=== PATIENT | male | born 1960 | race Caucasian/White ===

== ENCOUNTER → 2019-08-14 | Outpatient (CLI) | payer OTHER | END | disposition home or self-care (01) | LOC: LAB 10:04 → LAB SHORT 10:04 | DX: R39.89 Other symptoms and signs involving the genitourinary system (principal) | CPT/HCPCS: 87086 ==

== ENCOUNTER → 2019-11-02 | Outpatient (CLI) | payer OTHER ==
[~2019-11-02] MED LIST: Lopressor 50 mg50 MG PO; Ventolin/Prove6.7 GM INH; XARELTO20 MG PO
[2019-11-02 16:40] LABS: Campylobacter Sp Not Detected (NOT DETECT); Cryptosporidium Not Detected (NOT DETECT); Cyclospora Cayetanensis Not Detected (NOT DETECT); E. Coli O157 Not Detected (NOT DETECT); Entamoeba Histolytica Not Detected (NOT DETECT); Enteroaggregative E. coli-EAEC Not Detected (NOT DETECT); Enteropathogenic E. coli-EPEC Not Detected (NOT DETECT); Enterotoxigenic E. coli-ETEC Not Detected (NOT DETECT); Giardia Lamblia Not Detected (NOT DETECT); Plesiomonas Shigelloides Not Detected (NOT DETECT); Salmonella Sp Not Detected (NOT DETECT); Shiga Toxin-prod E. coli-STEC Not Detected (NOT DETECT); Shigella/Enteroin E. coli-EIEC Not Detected (NOT DETECT); Vibrio Cholerae Not Detected (NOT DETECT); Vibrio Sp Not Detected (NOT DETECT); Yersinia Enterocolitica Not Detected (NOT DETECT)
[2019-11-02 16:41] LABS: Adenovirus F 40/41 Not Detected (NOT DETECT); Astrovirus Not Detected (NOT DETECT); Norovirus GI/GII Not Detected (NOT DETECT); Rotavirus A Not Detected (NOT DETECT); Sapovirus Not Detected (NOT DETECT)
== END | disposition home or self-care (01) ==
LOC: LAB 09:04 → LAB SHORT 09:04
PROVIDERS: Nurse Practitioner Family
DX: R14.0 Abdominal distension (gaseous) (principal); R19.7 Diarrhea, unspecified
CPT/HCPCS: 0097U

== ENCOUNTER 2019-11-04 09:13 | Inpatient (IN) | payer OTHER ==
[~2019-11-04] VITALS: Ht 175.3 cm; Wt 95.6 kg
[2019-11-04 10:18] LABS: BASOPHILS ABSOLUTE AUTO 0.12 K/mm3 (0.00-0.23); BASOPHILS PERCENT AUTO 1 % (0-2); EOSINOPHILS ABSOLUTE AUTO 0.02 K/mm3 (0.00-0.68); EOSINOPHILS PERCENT AUTO 0 % (0-6); Hematocrit 51.3 % (37.0-53.0); Hemoglobin 17.4 g/dL (13.5-17.5); IMMATURE GRAN ABSOLUTE AUTO 0.06 K/mm3 (0.00-0.10); IMMATURE GRAN PERCENT AUTO 0 % (0-1); LYMPHOCYTES ABSOLUTE AUTO 2.14 K/mm3 (0.84-5.20); LYMPHOCYTES PERCENT AUTO 16 % (21-46); MONOCYTES ABSOLUTE AUTO 0.91 K/mm3 (0.16-1.47); MONOCYTES PERCENT AUTO 7 % (4-13); Mean Corpuscular HGB 32.3 pg (26.0-34.0); Mean Corpuscular HGB Conc 33.9 g/dL (31.5-36.5); Mean Corpuscular Volume 95 fL (80-100); Mean Platelet Volume 11.5 fL (9.1-12.4); NEUTROPHILS ABSOLUTE AUTO 10.26 K/mm3 (1.96-9.15); NEUTROPHILS PERCENT AUTO 76 % (41-73); Platelet Count 288 K/mm3 (150-400); RDW Coefficient Variation 13.4 % (11.7-14.2); Red Blood Cell Count 5.39 M/mm3 (4.30-5.90); White Blood Cell Count 13.51 K/mm3 (4.00-11.30)
[2019-11-04 10:40] LABS: Albumin, Blood 4.1 g/dL (3.4-5.0); Albumin/Globulin Ratio 1.4 (0.8-1.8); Bilirubin, Total 1.1 mg/dL (0.1-1.0); Calcium, Blood 9.7 mg/dL (8.5-10.1); Creatinine, Blood 2.09 mg/dL (0.60-1.20); Globulin, Blood 2.9 g/dL (2.2-4.0); Troponin I 0.021 ng/mL (0.000-0.040)
[2019-11-04 11:41] LABS: International Normalized Ratio 1.22; Prothrombin Time Results 12.9 Sec (9.7-11.5)
[2019-11-04] MEDS ORDERED: Ventolin/Prove6.7 GM INH (12:08)
[2019-11-04] MEDS ORDERED: Lopressor 50 mg50 MG PO (12:08)
[2019-11-04] MEDS ORDERED: XARELTO20 MG PO (13:21)
--- NOTE | 2019-11-04 15:21 | NUR ---
1430 The pt's echocardiogram was completed by Murphy, and when I was told after returning from lunch by Gladys Villalpando that the pt was feeling very weak and dyspneic at the end of the echo. Per Murphy, the pt's EF is 10% and he has also mitral regurgitation. The pt was still c/o difficulty breathing, he looks cyanotic, and appears to be extremely weak. Difficulty obtaining blood pressure. Oxygen by nasal cannula was applied. EKG was done, and reported to DR. Olvera, as well as the information from Murphy regarding the pt's echocardiogram, and the pt's condition which included a manual blood pressure of 60/[address] Olvera requested that the cardiology consultation be re-initiated. I called Dr. Thompson with the consultation and relayed to her the pertinent information regarding the pt available to me at the time. The pt was then transferred per Dr. Croft's orders to ICU 9 and bedside report was given to Rohan, who was assuming care of the patient. Dr. Olvera also met us in the ICU soon after the transfer.
--- NOTE | 2019-11-04 15:25 | NUR ---
DOPPLER BP 70/ DOPPLER. DR GROVE AND DR KELLEY AWARE.
--- NOTE | 2019-11-04 15:25 | NUR ---
ASSUMED CARE PT TRANSFERED TO ICU 9 AT 1455 VIA BED. PT IS AWAKE, ALERT, AND ORIENTED. PT IS LETHARGIC AND ASHEN IN COLOR. DOPPLER BP OF [address] GROVE IN ROOM AT THIS TIME TO PLACE CENTRAL LINE. HR 100-120'S AFIB. PT ON 2L O2 NC.
[2019-11-04 15:27] LABS: Adenovirus Not Detected (NOT DETECT); Bordetella pertussis Not Detected (NOT DETECT); Chlamydophila pneumoniae Not Detected (NOT DETECT); Coronavirus 229E Not Detected (NOT DETECT); Coronavirus HKU1 Not Detected (NOT DETECT); Coronavirus NL63 Not Detected (NOT DETECT); Coronavirus OC43 Not Detected (NOT DETECT); Human Metapneumovirus Not Detected (NOT DETECT); Human Rhinovirus/Enterovirus Not Detected (NOT DETECT); Influenza A/2009-H1 Not Detected (NOT DETECT); Influenza A/H1 Not Detected (NOT DETECT); Influenza A/H3 Not Detected (NOT DETECT); Influenza B Not Detected (NOT DETECT); Mycoplasma pneumoniae Not Detected (NOT DETECT); Parainfluenza Virus 1 Not Detected (NOT DETECT); Parainfluenza Virus 2 Not Detected (NOT DETECT); Parainfluenza Virus 3 Not Detected (NOT DETECT); Parainfluenza Virus 4 Not Detected (NOT DETECT); Respiratory Syncytial Virus Not Detected (NOT DETECT)
--- NOTE | 2019-11-04 16:26 | NUR ---
DOPPLER BP 90/ DOPPLER.
--- NOTE | 2019-11-04 18:33 | NUR ---
SHIFT SUMMARY / SOPHIE SOPHIE PROCEDURE PERFORMED FROM [address] BRUNER AT BEDSIDE. PT SEDATED WITH 2 MG VERSED AND 50 MCG'S OF FENTANYL. BP HAS REMAINED LABILE THROUGHOUT THE SHIFT AND PROCEDURE. LEVOPHED INFUSING AT 25 MCG/MIN, HEPARIN AT 13 UNITS/KG/HR PER PHARMACY, AND NS TKO. CL TO RIGHT SC IS C/D/I. PT AWAKE, ALERT, AND ORIENTED AT THIS TIME, BUT REMAINS DROWSEY. PT ON 4L O2 NC. SPO2 >92%. HR REMAINS AFIB 110-140'S. LS ARE COURSE THROUGHOUT. BT X4. EXTREMITIES ARE COOL AND PALE, TOES DUSKY. DR BRUNER TO PUT IN NEW ORDERS. WILL CONTINUE TO MONITOR AND REPORT OFF TO ONCOMING RN.
--- NOTE | 2019-11-04 18:51 | NUR ---
echocardiogram complete
--- NOTE | 2019-11-04 21:57 | NUR ---
PT RESTING IN BED. DENIES PAIN AND SOB. O2 AT 3L NC. A/O X4. DOROTHY. EQUAL CHECK PILOT. FACE IS SYMMETRICAL. RAISES ARMS AND LEGS OFF THE BED AND HOLDS THEM THERE, NO DRIFTING. ON LEVOPHED GTT AT 25MCG/MIN. WILL TITRATE PRN. HEPARIN GTT MANAGED BY PHARMACY. NO REQUESTS. CALL LIGHT IN REACH.
[2019-11-05 03:51] LABS: BASOPHILS PERCENT AUTO 1 % (0-2); EOSINOPHILS PERCENT AUTO 0 % (0-6); Hematocrit 43.5 % (37.0-53.0); Hemoglobin 14.6 g/dL (13.5-17.5); IMMATURE GRAN ABSOLUTE AUTO 0.03 K/mm3 (0.00-0.10); IMMATURE GRAN PERCENT AUTO 0 % (0-1); LYMPHOCYTES ABSOLUTE AUTO 4.27 K/mm3 (0.84-5.20); LYMPHOCYTES PERCENT AUTO 31 % (21-46); MONOCYTES ABSOLUTE AUTO 1.33 K/mm3 (0.16-1.47); MONOCYTES PERCENT AUTO 10 % (4-13); Mean Corpuscular HGB 31.7 pg (26.0-34.0); Mean Corpuscular HGB Conc 33.6 g/dL (31.5-36.5); Mean Corpuscular Volume 94 fL (80-100); Mean Platelet Volume 11.8 fL (9.1-12.4); NEUTROPHILS ABSOLUTE AUTO 8.17 K/mm3 (1.96-9.15); NEUTROPHILS PERCENT AUTO 59 % (41-73); Platelet Count 256 K/mm3 (150-400); RDW Coefficient Variation 13.3 % (11.7-14.2); RDW Standard Deviation 46.5 fL (35.1-46.3); Red Blood Cell Count 4.61 M/mm3 (4.30-5.90)
[2019-11-05 04:24] LABS: Alanine Aminotransfer (ALT/SGP 946 U/L (12-78); Albumin, Blood 3.2 g/dL (3.4-5.0); Albumin/Globulin Ratio 1.4 (0.8-1.8); Alk Phos 46 U/L (50-136); Anion Gap 9 mmol/L (6-16); Aspartate Aminotrans (AST/SGOT 998 U/L (12-37); Bilirubin, Total 0.4 mg/dL (0.1-1.0); Blood Urea Nitrogen 34 mg/dL (8-24); Bun/Creatinine Ratio 15.6 (12.0-20.0); CO2, Blood 23 mmol/L (21-32); Calcium, Blood 8.3 mg/dL (8.5-10.1); Chloride, Blood 106 mmol/L (98-108); Creatinine, Blood 2.18 mg/dL (0.60-1.20); Globulin, Blood 2.3 g/dL (2.2-4.0); Glomerular Filtration Rate 33 (60-); Glucose, Blood 154 mg/dL (70-99); Potassium, Blood 4.2 mmol/L (3.5-5.5); Sodium, Blood 138 mmol/L (136-145); Total Protein, Blood 5.5 g/dL (6.4-8.2); Troponin I 0.028 ng/mL (0.000-0.040)
[2019-11-05 05:17] LABS: Digoxin (Lanoxin) >15.00 ug/mL (0.80-2.00)
--- NOTE | 2019-11-05 06:34 | NUR ---
SUMMARY PT RESTING IN BED. DENIES PAIN, SOB, AND N/V ALL NIGHT. NO CHANGES IN NEURO. LEVOPHED HAS BEEN TITRATED DOWN TO 2MCG/MIN. STILL IN AFIB ANYWHERE FROM 80-110. CALLED DR. BRUNER ABOUT CRITICAL HIGH DIGOXIN LEVEL THIS AM. NEW ORDERS FOR EKG AND REDRAW DIG LEVEL AT NOON. NO SIGN OF DISTRESS. CALL LIGHT IN REACH.
--- NOTE | 2019-11-05 07:43 | NUR ---
ASSUMED CARE REPORT RECIEVED. PT IS SITTING UP IN BED AWAKE, ALERT, AND ORIENTED. PT DENIES PAIN OR DISCOMFORT. DENIES SOB. VITAL SIGNS STABLE WITH LEVOPHED TITRATED DOWN TO 1 MCG/MIN. PT ON 2L O2 NC. PT IS PINK AND WARM TO TOUCH. PT WITH URINAL AT BEDSIDE, USING INDEPENDENTLY. CENTRAL LINE TO RIGHT SC IS C/D/I. HEPARIN INFUSING AT 17 UNITS/KG/HR PER PHARMACY, AND NS TKO. DR BRUNER AT BEDSIDE TO DISCUSS PLAN OF CARE WITH PT. NO NEW ORDERS RECIEVED AT THIS TIME. WILL CONTINUE TO MONITOR.
[2019-11-05 12:45] LABS: Digoxin (Lanoxin) 0.66 ug/mL (0.80-2.00)
[2019-11-05 12:53] LABS: Phosphorus, Blood 3.8 mg/dL (2.5-4.9)
--- NOTE | 2019-11-05 17:48 | NUR ---
SHIFT SUMMARY PT DOING WELL THIS SHIFT. PT HAS TAKEN MULTIPLE NAPS THROUGHOUT THE DAY, BUT HAS REMAINED ALERT, ORIENTED, AND VERY TALKATIVE WHEN AWAKE. PT HAS DENIED PAIN OR SOB THIS SHIFT. VITAL SIGNS HAVE REMAINED STABLE THIS SHIFT. HR REMAINS AFIB 80-110'S. LEVOPHED TITRATED OFF THIS AM WITH STABLE BP THROUGHOUT THE DAY. PT ON 2L O2 NC. CL TO RIGHT SUBCLAVIAN IS C/D/I. HEPARIN INFUSING AT 17 UNITS/KG/HR AND NS TKO. PT USING URINAL TO VOID WELL INDEPENDENTLY. WILL CONTINUE TO MONITOR AND REPORT OFF TO ONCOMING RN.
[2019-11-06 04:35] LABS: BASOPHILS ABSOLUTE AUTO 0.08 K/mm3 (0.00-0.23); BASOPHILS PERCENT AUTO 1 % (0-2); EOSINOPHILS ABSOLUTE AUTO 0.12 K/mm3 (0.00-0.68); EOSINOPHILS PERCENT AUTO 2 % (0-6); Hematocrit 39.9 % (37.0-53.0); Hemoglobin 13.7 g/dL (13.5-17.5); IMMATURE GRAN ABSOLUTE AUTO 0.02 K/mm3 (0.00-0.10); IMMATURE GRAN PERCENT AUTO 0 % (0-1); LYMPHOCYTES ABSOLUTE AUTO 1.91 K/mm3 (0.84-5.20); LYMPHOCYTES PERCENT AUTO 25 % (21-46); MONOCYTES ABSOLUTE AUTO 0.66 K/mm3 (0.16-1.47); MONOCYTES PERCENT AUTO 9 % (4-13); Mean Corpuscular HGB 32.7 pg (26.0-34.0); Mean Corpuscular HGB Conc 34.3 g/dL (31.5-36.5); Mean Corpuscular Volume 95 fL (80-100); Mean Platelet Volume 11.4 fL (9.1-12.4); NEUTROPHILS PERCENT AUTO 64 % (41-73); Platelet Count 160 K/mm3 (150-400); RDW Coefficient Variation 13.3 % (11.7-14.2); RDW Standard Deviation 47.2 fL (35.1-46.3); Red Blood Cell Count 4.19 M/mm3 (4.30-5.90); White Blood Cell Count 7.69 K/mm3 (4.00-11.30)
[2019-11-06 05:02] LABS: Alanine Aminotransfer (ALT/SGP 691 U/L (12-78); Albumin, Blood 2.8 g/dL (3.4-5.0); Albumin/Globulin Ratio 1.3 (0.8-1.8); Alk Phos 40 U/L (50-136); Anion Gap 6 mmol/L (6-16); Aspartate Aminotrans (AST/SGOT 270 U/L (12-37); Bilirubin, Total 0.5 mg/dL (0.1-1.0); Blood Urea Nitrogen 18 mg/dL (8-24); Bun/Creatinine Ratio 14.2 (12.0-20.0); CO2, Blood 25 mmol/L (21-32); Calcium, Blood 8.1 mg/dL (8.5-10.1); Chloride, Blood 109 mmol/L (98-108); Creatinine, Blood 1.27 mg/dL (0.60-1.20); Globulin, Blood 2.2 g/dL (2.2-4.0); Glomerular Filtration Rate >60 (60-); Glucose, Blood 78 mg/dL (70-99); Magnesium, Blood 2.2 mg/dL (1.6-2.4); Phosphorus, Blood 3.4 mg/dL (2.5-4.9); Potassium, Blood 3.7 mmol/L (3.5-5.5); Sodium, Blood 140 mmol/L (136-145)
[2019-11-06 05:08] LABS: Digoxin (Lanoxin) 0.51 ug/mL (0.80-2.00)
--- NOTE | 2019-11-06 06:41 | NUR ---
SUMMARY PT DID WELL OVERNIGHT. DENIES PAIN OR PRESSURE, N/V, AND SOB. HEPARIN GTT REMAINS THE SAME. NO CHANGES.
--- NOTE | 2019-11-06 13:00 | NUR ---
DR ZOHREH BRUNER CALLED AND UPDATED TO VS AND PT STATUS. DISCUSSED PLAN OF CARE. NEW ORDERS RECIEVED.
--- NOTE | 2019-11-06 17:10 | NUR ---
SUMMARY PT SITTING UP IN BED TALKING ON THE PHONE WITH FAMILY, PT HAS BEEN ALERT AND ORIENTED T/O THE DAY, HEPARIN GTT HAS BEEN INCREASED SEVERAL TIMES TODAY AND IS NOW AT 20MG/KG/HR, PT CHELO WELL, PT HAS BEEN UP TO THE BATHROOM WITH MIN ASSIST, GAIT STEADY, PT ABLE TO VISIT BRIEFLY WITH HIS FAMILY THROUGH THE OUTSIDE WINDOW AND THE TELEPHONE, PT REPORTS FEELING "BETTER" TODAY, PT MED WITH DIGOXIN IV FOR HEART RATE, PT HAS DENIED ANY CHEST PAIN OR SOB, PLEASANT AND COOPERATIVE T/O THE DAY, VSS, NO ACUTE CHANGES, WILL CONT TO MONITOR
--- NOTE | 2019-11-07 01:39 | NUR ---
SHIFT NOTE: BEDSIDE REPORT GIVEN AT START OF SHIFT. PT A+O WATCHING TV. BP STABLE, HR 130'S ON THE MONITOR BUT 52-60'S RADIALLY. PT HAS DENIED SOB, DIZZINESS, OR ANY DISCOMFORTS THIS SHIFT THUS FAR. HOWEVER, PT OXYGEN REQUIREMENTS INCREASED TO KEEP SATS >90%. PT WITH CLEAR BUT DIMINISHED LS. O2 INCREASED TO 10L O2 WITH N/C REPLACED WITH HI-FLOW N/C. SINCE, PT'S SATS 90-92%. DURING THIS TIME, EACH TIME RN TO BEDSIDE, UPDATED PT WITH SATS AND O2 REQUIREMENTS, PT BECAME IRRITATED AND STATED A FEW TIMES, "JUST DON'T WORRY ABOUT IT". PT DENIED EVER HAVING SLEEP APNEA NOR ANY OTHER RESPIRATORY ISSUES. PT OTHERWISE APPEARS TO BE COMFORTABLE AND WITHOUT C/O. CALL LIGHT WITHIN REACH. WILL CONTINUE TO MONITOR.
[2019-11-07 05:44] LABS: BASOPHILS ABSOLUTE AUTO 0.06 K/mm3 (0.00-0.23); BASOPHILS PERCENT AUTO 1 % (0-2); EOSINOPHILS ABSOLUTE AUTO 0.43 K/mm3 (0.00-0.68); EOSINOPHILS PERCENT AUTO 6 % (0-6); Hematocrit 42.2 % (37.0-53.0); Hemoglobin 14.4 g/dL (13.5-17.5); IMMATURE GRAN ABSOLUTE AUTO 0.02 K/mm3 (0.00-0.10); IMMATURE GRAN PERCENT AUTO 0 % (0-1); LYMPHOCYTES ABSOLUTE AUTO 1.64 K/mm3 (0.84-5.20); LYMPHOCYTES PERCENT AUTO 22 % (21-46); MONOCYTES ABSOLUTE AUTO 0.81 K/mm3 (0.16-1.47); MONOCYTES PERCENT AUTO 11 % (4-13); Mean Corpuscular HGB 32.3 pg (26.0-34.0); Mean Corpuscular HGB Conc 34.1 g/dL (31.5-36.5); Mean Corpuscular Volume 95 fL (80-100); NEUTROPHILS ABSOLUTE AUTO 4.59 K/mm3 (1.96-9.15); NEUTROPHILS PERCENT AUTO 61 % (41-73); Platelet Count 185 K/mm3 (150-400); RDW Coefficient Variation 13.2 % (11.7-14.2); RDW Standard Deviation 46.3 fL (35.1-46.3); Red Blood Cell Count 4.46 M/mm3 (4.30-5.90); White Blood Cell Count 7.55 K/mm3 (4.00-11.30)
[2019-11-07 06:02] LABS: Alanine Aminotransfer (ALT/SGP 640 U/L (12-78); Albumin, Blood 2.8 g/dL (3.4-5.0); Albumin/Globulin Ratio 1.1 (0.8-1.8); Alk Phos 41 U/L (50-136); Anion Gap 6 mmol/L (6-16); Aspartate Aminotrans (AST/SGOT 186 U/L (12-37); Bilirubin, Total 0.5 mg/dL (0.1-1.0); Blood Urea Nitrogen 13 mg/dL (8-24); Bun/Creatinine Ratio 10.2 (12.0-20.0); CO2, Blood 27 mmol/L (21-32); Calcium, Blood 8.4 mg/dL (8.5-10.1); Chloride, Blood 110 mmol/L (98-108); Creatinine, Blood 1.27 mg/dL (0.60-1.20); Globulin, Blood 2.6 g/dL (2.2-4.0); Glomerular Filtration Rate >60 (60-); Glucose, Blood 95 mg/dL (70-99); Potassium, Blood 3.7 mmol/L (3.5-5.5); Sodium, Blood 143 mmol/L (136-145); Total Protein, Blood 5.4 g/dL (6.4-8.2)
--- NOTE | 2019-11-07 08:02 | NUR ---
Received report from Isatu ARANGO. Patient sitting up in bed doing face time. When entering room mninutes later I reduced his O2 to NC 5L and off high flow NC and sats mid 90%'s and he states feeling fine without any dyspnea. He tolerated am med with water. I called Dr Roy and he states fine with him going to PCU as well as Dr Scott. He has bilateral 20ga IV's in AC's both dressings intact and sites WNL's. RAC infusing Heparin at 20 units/kg/hr and NS TKO. He is afebrile at 97.6, HR 90's and systolic 114 with MAP > 65. Patient states would like to go back to PCU and nothing wrong with ICU just prefers not to be here. Patient alert and able to communicate his needs.
--- NOTE | 2019-11-07 11:10 | NUR ---
Reduced patient down to RA by 0900 and sats in the upper 90's. He tolerated breakfast 100% and was independent in room. I walked him to PCU 4 and hbe was 97 % after getting to bed. I gathered all personal belonging after patient was transfered and took to room. He remains on NS TKO and Heparin 20 units /kg/hr. He had no current needs at time of transfer. Gave Nurse report in person prior to transfer.
--- NOTE | 2019-11-07 16:57 | NUR ---
SHIFT NOTE PT TRANSFERED FROM ICU. PT A/O X4, ANSWERING QUESTIONS APPROPRIATELY IN FULL SENTENCES. PT'S CENTRAL LINE WAS REMOVED, PRESSURE HELD FOR 45 MINUTES WITH SOME BLEEDING NOTED POST PRESSURE, NILDA ARANGO WAS CALLED FROM ICU TO PLACE PRESSURE DRESSING AND NO BLEEDING HAS BEEN NOTED SINCE PRESSURE DRESSING APPLIED. HEPARIN TO BE D/C WHEN XARELTO IS BEGINS AT 1800 TONIGHT. PT HAS BEEN OTHERWISE INDEPENDANT IN ROOM. CENTRAL LINE WAS REMOVED INTACT WITH NO BREAKS NOTED.
[2019-11-08 03:25] LABS: BASOPHILS ABSOLUTE AUTO 0.06 K/mm3 (0.00-0.23); BASOPHILS PERCENT AUTO 1 % (0-2); EOSINOPHILS ABSOLUTE AUTO 0.55 K/mm3 (0.00-0.68); EOSINOPHILS PERCENT AUTO 7 % (0-6); Hematocrit 43.4 % (37.0-53.0); Hemoglobin 14.9 g/dL (13.5-17.5); IMMATURE GRAN ABSOLUTE AUTO 0.02 K/mm3 (0.00-0.10); IMMATURE GRAN PERCENT AUTO 0 % (0-1); LYMPHOCYTES ABSOLUTE AUTO 2.05 K/mm3 (0.84-5.20); LYMPHOCYTES PERCENT AUTO 27 % (21-46); MONOCYTES ABSOLUTE AUTO 0.87 K/mm3 (0.16-1.47); MONOCYTES PERCENT AUTO 11 % (4-13); Mean Corpuscular HGB 32.2 pg (26.0-34.0); Mean Corpuscular HGB Conc 34.3 g/dL (31.5-36.5); Mean Corpuscular Volume 94 fL (80-100); Mean Platelet Volume 11.5 fL (9.1-12.4); NEUTROPHILS ABSOLUTE AUTO 4.06 K/mm3 (1.96-9.15); NEUTROPHILS PERCENT AUTO 53 % (41-73); Platelet Count 210 K/mm3 (150-400); RDW Coefficient Variation 13.5 % (11.7-14.2); RDW Standard Deviation 46.5 fL (35.1-46.3); Red Blood Cell Count 4.63 M/mm3 (4.30-5.90); White Blood Cell Count 7.61 K/mm3 (4.00-11.30)
[2019-11-08 03:45] LABS: Alanine Aminotransfer (ALT/SGP 582 U/L (12-78); Alk Phos 44 U/L (50-136); Anion Gap 7 mmol/L (6-16); Aspartate Aminotrans (AST/SGOT 136 U/L (12-37); Bilirubin, Total 0.4 mg/dL (0.1-1.0); Blood Urea Nitrogen 12 mg/dL (8-24); Bun/Creatinine Ratio 9.9 (12.0-20.0); CO2, Blood 25 mmol/L (21-32); Chloride, Blood 109 mmol/L (98-108); Creatinine, Blood 1.21 mg/dL (0.60-1.20); Globulin, Blood 2.9 g/dL (2.2-4.0); Glomerular Filtration Rate >60 (60-); Glucose, Blood 100 mg/dL (70-99); Magnesium, Blood 1.9 mg/dL (1.6-2.4); Potassium, Blood 4.2 mmol/L (3.5-5.5); Sodium, Blood 141 mmol/L (136-145); Total Protein, Blood 5.9 g/dL (6.4-8.2)
--- NOTE | 2019-11-08 05:27 | NUR ---
END OF SHIFT SUMMARY NO ACUTE CHANGES THIS SHIFT. VSS. PRESSURE DRESSING STILL IN PLACE OVER CENTRAL LINE DC SITE. NO NEW BLEEDING NOTED. PT REMAINS IN AFIB, BP LOW BUT STABLE. PT'S HR 100'S, INCREASES TO 140'S WITH ACTIVITY/AMBULATION. PT HAS TAKEN A SEMI SHOWER/SPONGE BATH. PT HAS DENIED ANY CP/PRESSURE. HAS SLEPT T/O THE NIGHT. WILL CONTINUE TO MONITOR UNTIL SHIFT CHANGE.
[2019-11-08] MEDS ORDERED: METO25ER PO (10:09)
[2019-11-08] MEDS ORDERED: LOSA25 PO (10:09)
[2019-11-08] MEDS ORDERED: FURO20 PO (10:09)
[2019-11-08] MEDS ORDERED: POTCHL20ER PO (10:10)
[2019-11-08] MEDS ORDERED: SPIR25 PO (10:10)
--- NOTE | 2019-11-08 17:38 | NUR ---
DISCHARGE SUMMARY PT A&Ox4; CALM AND COOPERATIVE WITH CARE. PT RESTING IN BED DURING SHIFT, UP IND IN ROOM. PT REPORTS SOB WITH AMBULATIONS, SPO2 >90% ON RA. PT STARTED ON COZAAR AND ALDACTONE; ORDERS TO MONITOR VITALS AND OK TO SEND HOME IF REMAINS STABLE. TELE AFIB; HR TRENDING UP THIS AFTERNOON, NOTIFIED DR SOTELO NEW ORDER FOR METOPROLOL 12.5MG PO AT APPROX 1400; TRENDING BACK DOWM THIS AFTERNOON; NEW ORDERS TO CONINTUE WITH DISCHARGE. CENTRAL LINE REMOVED YESTERDAY TO LEFT UPPER CHEST; XEROFORM IN PLACE WITH TEGADERM COVERING. OTHER VSS. NO OTHER ACUTE CHANGES NOTED DURING SHIFT. EDUCATED PT IN DISCHARGE INSTRUCTIONS, MEDICATIONS, FOLLOW UP APPOINTMENT AND AFIB/THROMBUS. FAXED PRESCRIPTIONS TO [facility], PT PLANS TO [employer]ING IN THE AM. PT LEFT ROOM ON FOOT AT 1730.
== END 2019-11-08 17:29 | disposition home or self-care (01) | DRG 291 ==
LOC: ER 09:13 → ICUW 11:08 → PCU 11:08 → ICUW 14:53 → PCU 11-07 11:00
PROVIDERS: Emergency Medicine; Internal Medicine Cardiovascular Disease; Internal Medicine Critical Care Medicine; ADMIT Family Medicine
PROC: 05HM33Z Insertion of Infusion Device into Right Internal Jugular Vein, Percutaneous Approach (ICD-10-PCS; principal; 2019-11-04)
PROC: B543ZZA Ultrasonography of Right Jugular Veins, Guidance (ICD-10-PCS; 2019-11-04)
PROC: 3E043XZ Introduction of Vasopressor into Central Vein, Percutaneous Approach (ICD-10-PCS; 2019-11-04)
PROC: B24BZZ4 Ultrasonography of Heart with Aorta, Transesophageal (ICD-10-PCS; 2019-11-04)
DX: I11.0 Hypertensive heart disease with heart failure (principal); R57.0 Cardiogenic shock; I50.21 Acute systolic (congestive) heart failure; N17.9 Acute kidney failure, unspecified; I42.9 Cardiomyopathy, unspecified; I48.91 Unspecified atrial fibrillation; Z98.52 Vasectomy status; Z87.891 Personal history of nicotine dependence; I34.0 Nonrheumatic mitral (valve) insufficiency; F10.10 Alcohol abuse, uncomplicated; I51.3 Intracardiac thrombosis, not elsewhere classified; Z11.59 Encounter for screening for other viral diseases
CPT/HCPCS: 0099U; 36415; 36556; 71045; 76770; 80053; 80162; 83735; 83880; 84100; 84145; 84484; 85025; 85610; 85730; 93005; 93010; 93306; 93312; 93325; 96374; 96375; 99285-25; A9270-GY; C1751; J0456; J0696; J1160; J1644; J1940; J2250; J2310; J3010; J3411; J7030; J7050; J7060; U0002

== ENCOUNTER 2020-08-30 08:10 | Day surgery (SDC) | payer OTHER ==
[~2020-08-30 08:10] MED LIST changes: +Amiodarone HCl200 MG PO; +ENTRESTO 24 MG1 EACH PO; +FURO20 PO; +LOSA25 PO; +METO25ER PO; +POTCHL20ER PO; +SPIR25 PO
--- NOTE | 2020-08-30 08:46 | NUR ---
Ambulatory in Day Surgery History, Chart, Medications and Allergies reviewed before start of procedure. Lungs clear T/O to Auscultation. Patient confirms NPO status and agrees with scheduled surgery. Pre-Op teaching done. Pt verbalizes understanding.
--- NOTE | 2020-08-30 09:29 | NUR ---
Patient up to Ambulate independently. Gait steady. Discharge instructions reviewed with patient. Patient verbalizes understanding. Copy given to patient to take home.
== END 2020-08-30 22:59 | disposition home or self-care (01) ==
LOC: ORD 08:10 → CT 08:10 → ORD 08:30 → CT 09:00
DX: I48.19 Other persistent atrial fibrillation (principal)
CPT/HCPCS: 75574; Q9967

== ENCOUNTER 2022-05-18 02:32 | Day surgery (SDC) | payer OTHER | END 2022-05-18 23:43 | disposition home or self-care (01) | LOC: WOUND 02:32 | DX: L59.8 Other specified disorders of the skin and subcutaneous tissue related to radiation (principal); I48.92 Unspecified atrial flutter; I25.10 Atherosclerotic heart disease of native coronary artery without angina pectoris; R73.01 Impaired fasting glucose; F10.11 Alcohol abuse, in remission; I11.0 Hypertensive heart disease with heart failure; I50.9 Heart failure, unspecified; I48.91 Unspecified atrial fibrillation; Y84.2 Radiological procedure and radiotherapy as the cause of abnormal reaction of the patient, or of later complication, without mention of misadventure at the time of the procedure; Z85.818 Personal history of malignant neoplasm of other sites of lip, oral cavity, and pharynx; Z87.891 Personal history of nicotine dependence; Z86.718 Personal history of other venous thrombosis and embolism | CPT/HCPCS: G0463 ==

== ENCOUNTER 2022-05-28 02:58 | Day surgery (SDC) | payer OTHER | END 2022-05-28 23:19 | disposition home or self-care (01) | LOC: HBO 02:58 | DX: L59.8 Other specified disorders of the skin and subcutaneous tissue related to radiation (principal); I48.92 Unspecified atrial flutter; I25.10 Atherosclerotic heart disease of native coronary artery without angina pectoris; R73.01 Impaired fasting glucose; F10.11 Alcohol abuse, in remission; I11.0 Hypertensive heart disease with heart failure; I50.9 Heart failure, unspecified; Z85.819 Personal history of malignant neoplasm of unspecified site of lip, oral cavity, and pharynx | CPT/HCPCS: G0277 ==

== ENCOUNTER 2022-05-29 11:49 | Day surgery (SDC) | payer OTHER | END 2022-05-29 23:44 | disposition home or self-care (01) | LOC: HBO 11:49 | DX: L59.8 Other specified disorders of the skin and subcutaneous tissue related to radiation (principal); I48.92 Unspecified atrial flutter; I11.0 Hypertensive heart disease with heart failure; I50.9 Heart failure, unspecified; I25.10 Atherosclerotic heart disease of native coronary artery without angina pectoris; R73.01 Impaired fasting glucose; F10.11 Alcohol abuse, in remission; Z85.819 Personal history of malignant neoplasm of unspecified site of lip, oral cavity, and pharynx | CPT/HCPCS: G0277 ==

== ENCOUNTER 2022-05-31 03:23 | Day surgery (SDC) | payer OTHER | END 2022-05-31 23:31 | disposition home or self-care (01) | LOC: HBO 03:23 | DX: L59.8 Other specified disorders of the skin and subcutaneous tissue related to radiation (principal); I48.92 Unspecified atrial flutter; I25.10 Atherosclerotic heart disease of native coronary artery without angina pectoris; R73.01 Impaired fasting glucose; F10.11 Alcohol abuse, in remission; I11.0 Hypertensive heart disease with heart failure; I50.9 Heart failure, unspecified; Z85.819 Personal history of malignant neoplasm of unspecified site of lip, oral cavity, and pharynx | CPT/HCPCS: G0277 ==

== ENCOUNTER 2022-06-01 02:04 | Day surgery (SDC) | payer OTHER | END 2022-06-01 23:43 | disposition home or self-care (01) | LOC: HBO 02:04 | DX: L59.8 Other specified disorders of the skin and subcutaneous tissue related to radiation (principal); I48.92 Unspecified atrial flutter; I25.10 Atherosclerotic heart disease of native coronary artery without angina pectoris; R73.01 Impaired fasting glucose; F10.11 Alcohol abuse, in remission; I11.0 Hypertensive heart disease with heart failure; I50.9 Heart failure, unspecified; Z85.819 Personal history of malignant neoplasm of unspecified site of lip, oral cavity, and pharynx | CPT/HCPCS: G0277 ==

== ENCOUNTER 2022-06-04 00:24 | Day surgery (SDC) | payer OTHER | END 2022-06-04 22:55 | disposition home or self-care (01) | LOC: HBO 00:24 | DX: L59.8 Other specified disorders of the skin and subcutaneous tissue related to radiation (principal); I48.92 Unspecified atrial flutter; I25.10 Atherosclerotic heart disease of native coronary artery without angina pectoris; R73.01 Impaired fasting glucose; F10.11 Alcohol abuse, in remission; I11.0 Hypertensive heart disease with heart failure; I50.9 Heart failure, unspecified; Z85.819 Personal history of malignant neoplasm of unspecified site of lip, oral cavity, and pharynx | CPT/HCPCS: G0277 ==

== ENCOUNTER 2022-06-05 03:09 | Day surgery (SDC) | payer OTHER | END 2022-06-05 23:34 | disposition home or self-care (01) | LOC: HBO 03:09 | DX: L59.8 Other specified disorders of the skin and subcutaneous tissue related to radiation (principal); Z85.819 Personal history of malignant neoplasm of unspecified site of lip, oral cavity, and pharynx; I48.92 Unspecified atrial flutter; I25.10 Atherosclerotic heart disease of native coronary artery without angina pectoris; R73.01 Impaired fasting glucose; F10.11 Alcohol abuse, in remission; I50.9 Heart failure, unspecified; I11.0 Hypertensive heart disease with heart failure | CPT/HCPCS: G0277 ==

== ENCOUNTER 2022-06-06 02:02 | Day surgery (SDC) | payer OTHER | END 2022-06-06 23:50 | disposition home or self-care (01) | LOC: HBO 02:02 | DX: L59.8 Other specified disorders of the skin and subcutaneous tissue related to radiation (principal); I48.92 Unspecified atrial flutter; I25.10 Atherosclerotic heart disease of native coronary artery without angina pectoris; R73.01 Impaired fasting glucose; F10.11 Alcohol abuse, in remission; I11.0 Hypertensive heart disease with heart failure; I50.9 Heart failure, unspecified; Z85.819 Personal history of malignant neoplasm of unspecified site of lip, oral cavity, and pharynx | CPT/HCPCS: G0277 ==

== ENCOUNTER 2022-06-07 03:55 | Day surgery (SDC) | payer OTHER | END 2022-06-07 23:07 | disposition home or self-care (01) | LOC: HBO 03:55 | DX: L59.8 Other specified disorders of the skin and subcutaneous tissue related to radiation (principal); I48.92 Unspecified atrial flutter; I25.10 Atherosclerotic heart disease of native coronary artery without angina pectoris; R73.01 Impaired fasting glucose; F10.11 Alcohol abuse, in remission; I11.0 Hypertensive heart disease with heart failure; I50.9 Heart failure, unspecified; Z85.819 Personal history of malignant neoplasm of unspecified site of lip, oral cavity, and pharynx | CPT/HCPCS: G0277 ==

== ENCOUNTER 2022-06-11 02:57 | Day surgery (SDC) | payer OTHER | END 2022-06-11 23:41 | disposition home or self-care (01) | LOC: HBO 02:57 | DX: L59.8 Other specified disorders of the skin and subcutaneous tissue related to radiation (principal); Z85.819 Personal history of malignant neoplasm of unspecified site of lip, oral cavity, and pharynx; I48.92 Unspecified atrial flutter; I25.10 Atherosclerotic heart disease of native coronary artery without angina pectoris; R73.01 Impaired fasting glucose; F10.11 Alcohol abuse, in remission; I50.9 Heart failure, unspecified; I11.0 Hypertensive heart disease with heart failure | CPT/HCPCS: G0277 ==

== ENCOUNTER 2022-06-12 04:15 | Day surgery (SDC) | payer OTHER | END 2022-06-12 23:25 | disposition home or self-care (01) | LOC: HBO 04:15 | DX: L59.8 Other specified disorders of the skin and subcutaneous tissue related to radiation (principal); Z85.819 Personal history of malignant neoplasm of unspecified site of lip, oral cavity, and pharynx; I48.92 Unspecified atrial flutter; I25.10 Atherosclerotic heart disease of native coronary artery without angina pectoris; R73.01 Impaired fasting glucose; F10.11 Alcohol abuse, in remission; I50.9 Heart failure, unspecified; I11.0 Hypertensive heart disease with heart failure | CPT/HCPCS: G0277 ==

== ENCOUNTER 2022-06-14 02:08 | Day surgery (SDC) | payer OTHER | END 2022-06-14 22:57 | disposition home or self-care (01) | LOC: HBO 02:08 | DX: L59.8 Other specified disorders of the skin and subcutaneous tissue related to radiation (principal); I48.92 Unspecified atrial flutter; I25.10 Atherosclerotic heart disease of native coronary artery without angina pectoris; R73.01 Impaired fasting glucose; F10.11 Alcohol abuse, in remission; I11.0 Hypertensive heart disease with heart failure; I50.9 Heart failure, unspecified; Z85.819 Personal history of malignant neoplasm of unspecified site of lip, oral cavity, and pharynx | CPT/HCPCS: G0277 ==

== ENCOUNTER 2022-06-15 00:45 | Day surgery (SDC) | payer OTHER | END 2022-06-15 23:26 | disposition home or self-care (01) | LOC: HBO 00:45 | DX: L59.8 Other specified disorders of the skin and subcutaneous tissue related to radiation (principal); Z85.819 Personal history of malignant neoplasm of unspecified site of lip, oral cavity, and pharynx; I48.92 Unspecified atrial flutter; I25.10 Atherosclerotic heart disease of native coronary artery without angina pectoris; R73.01 Impaired fasting glucose; F10.11 Alcohol abuse, in remission; I50.9 Heart failure, unspecified; I11.0 Hypertensive heart disease with heart failure | CPT/HCPCS: G0277 ==

== ENCOUNTER 2022-06-18 01:50 | Day surgery (SDC) | payer OTHER | END 2022-06-18 23:40 | disposition home or self-care (01) | LOC: HBO 01:50 | DX: L59.8 Other specified disorders of the skin and subcutaneous tissue related to radiation (principal); Z85.819 Personal history of malignant neoplasm of unspecified site of lip, oral cavity, and pharynx; I48.92 Unspecified atrial flutter; I10 Essential (primary) hypertension; I25.10 Atherosclerotic heart disease of native coronary artery without angina pectoris; F10.11 Alcohol abuse, in remission; I50.9 Heart failure, unspecified; I11.0 Hypertensive heart disease with heart failure | CPT/HCPCS: G0277 ==

== ENCOUNTER 2022-06-19 08:00 | Day surgery (SDC) | payer OTHER | END 2022-06-19 23:59 | disposition home or self-care (01) | LOC: HBO 08:00 | DX: L59.8 Other specified disorders of the skin and subcutaneous tissue related to radiation (principal); Z85.819 Personal history of malignant neoplasm of unspecified site of lip, oral cavity, and pharynx; I48.92 Unspecified atrial flutter; I25.10 Atherosclerotic heart disease of native coronary artery without angina pectoris; R73.01 Impaired fasting glucose; F10.11 Alcohol abuse, in remission; I50.9 Heart failure, unspecified; I11.0 Hypertensive heart disease with heart failure | CPT/HCPCS: G0277 ==

== ENCOUNTER 2022-06-20 01:20 | Day surgery (SDC) | payer OTHER | END 2022-06-20 23:41 | disposition home or self-care (01) | LOC: HBO 01:20 | DX: L59.8 Other specified disorders of the skin and subcutaneous tissue related to radiation (principal); Z85.819 Personal history of malignant neoplasm of unspecified site of lip, oral cavity, and pharynx; I48.92 Unspecified atrial flutter; I25.10 Atherosclerotic heart disease of native coronary artery without angina pectoris; R73.01 Impaired fasting glucose; F10.11 Alcohol abuse, in remission; I11.0 Hypertensive heart disease with heart failure; I50.9 Heart failure, unspecified | CPT/HCPCS: G0277 ==

== ENCOUNTER 2022-06-21 00:51 | Day surgery (SDC) | payer OTHER | END 2022-06-21 22:44 | disposition home or self-care (01) | LOC: HBO 00:51 | DX: L59.8 Other specified disorders of the skin and subcutaneous tissue related to radiation (principal); Z85.819 Personal history of malignant neoplasm of unspecified site of lip, oral cavity, and pharynx; I48.92 Unspecified atrial flutter; I11.0 Hypertensive heart disease with heart failure; I50.9 Heart failure, unspecified; I25.10 Atherosclerotic heart disease of native coronary artery without angina pectoris; R73.01 Impaired fasting glucose; F10.11 Alcohol abuse, in remission; Y84.2 Radiological procedure and radiotherapy as the cause of abnormal reaction of the patient, or of later complication, without mention of misadventure at the time of the procedure | CPT/HCPCS: G0277 ==

== ENCOUNTER 2022-06-22 00:38 | Day surgery (SDC) | payer OTHER | END 2022-06-22 22:56 | disposition home or self-care (01) | LOC: HBO 00:38 | DX: L59.8 Other specified disorders of the skin and subcutaneous tissue related to radiation (principal); I48.92 Unspecified atrial flutter; I25.10 Atherosclerotic heart disease of native coronary artery without angina pectoris; R73.01 Impaired fasting glucose; F10.11 Alcohol abuse, in remission; I11.0 Hypertensive heart disease with heart failure; I50.9 Heart failure, unspecified; Z85.819 Personal history of malignant neoplasm of unspecified site of lip, oral cavity, and pharynx | CPT/HCPCS: G0277 ==

== ENCOUNTER 2022-06-25 02:00 | Day surgery (SDC) | payer OTHER | END 2022-06-25 23:33 | disposition home or self-care (01) | LOC: WOUND 02:00 | DX: L59.8 Other specified disorders of the skin and subcutaneous tissue related to radiation (principal); I48.92 Unspecified atrial flutter; I25.10 Atherosclerotic heart disease of native coronary artery without angina pectoris; R73.01 Impaired fasting glucose; F10.11 Alcohol abuse, in remission; I50.9 Heart failure, unspecified; I11.0 Hypertensive heart disease with heart failure | CPT/HCPCS: G0463 ==

== ENCOUNTER 2022-06-25 02:01 | Day surgery (SDC) | payer OTHER | END 2022-06-25 23:33 | disposition home or self-care (01) | LOC: HBO 02:01 | DX: L59.8 Other specified disorders of the skin and subcutaneous tissue related to radiation (principal); Z85.819 Personal history of malignant neoplasm of unspecified site of lip, oral cavity, and pharynx; I48.92 Unspecified atrial flutter; I25.10 Atherosclerotic heart disease of native coronary artery without angina pectoris; R73.01 Impaired fasting glucose; F10.11 Alcohol abuse, in remission; I50.9 Heart failure, unspecified; I11.0 Hypertensive heart disease with heart failure | CPT/HCPCS: G0277 ==

== ENCOUNTER 2022-06-26 03:34 | Day surgery (SDC) | payer OTHER | END 2022-06-26 22:46 | disposition home or self-care (01) | LOC: HBO 03:34 | DX: L59.8 Other specified disorders of the skin and subcutaneous tissue related to radiation (principal); I48.92 Unspecified atrial flutter; I25.10 Atherosclerotic heart disease of native coronary artery without angina pectoris; R73.01 Impaired fasting glucose; F10.11 Alcohol abuse, in remission; I11.0 Hypertensive heart disease with heart failure; I50.9 Heart failure, unspecified; Z85.819 Personal history of malignant neoplasm of unspecified site of lip, oral cavity, and pharynx | CPT/HCPCS: G0277 ==

== ENCOUNTER 2022-06-27 02:01 | Day surgery (SDC) | payer OTHER | END 2022-06-27 23:17 | disposition home or self-care (01) | LOC: HBO 02:01 | DX: L59.8 Other specified disorders of the skin and subcutaneous tissue related to radiation (principal); I48.92 Unspecified atrial flutter; Z85.819 Personal history of malignant neoplasm of unspecified site of lip, oral cavity, and pharynx; I25.10 Atherosclerotic heart disease of native coronary artery without angina pectoris; R73.01 Impaired fasting glucose; F10.11 Alcohol abuse, in remission; I11.0 Hypertensive heart disease with heart failure; I50.9 Heart failure, unspecified | CPT/HCPCS: G0277 ==

== ENCOUNTER 2022-07-02 01:31 | Day surgery (SDC) | payer OTHER | END 2022-07-02 23:39 | disposition home or self-care (01) | DX: L59.8 Other specified disorders of the skin and subcutaneous tissue related to radiation (principal); Z85.819 Personal history of malignant neoplasm of unspecified site of lip, oral cavity, and pharynx; I48.92 Unspecified atrial flutter; I11.0 Hypertensive heart disease with heart failure; I25.10 Atherosclerotic heart disease of native coronary artery without angina pectoris; R73.01 Impaired fasting glucose; F10.11 Alcohol abuse, in remission; I50.9 Heart failure, unspecified ==

== ENCOUNTER 2022-07-03 00:46 | Day surgery (SDC) | payer OTHER | END 2022-07-03 23:01 | disposition home or self-care (01) | LOC: HBO 00:46 | DX: L59.8 Other specified disorders of the skin and subcutaneous tissue related to radiation (principal); Z85.819 Personal history of malignant neoplasm of unspecified site of lip, oral cavity, and pharynx; I48.92 Unspecified atrial flutter; I25.10 Atherosclerotic heart disease of native coronary artery without angina pectoris; R73.01 Impaired fasting glucose; F10.11 Alcohol abuse, in remission; I50.9 Heart failure, unspecified; I11.0 Hypertensive heart disease with heart failure | CPT/HCPCS: G0277 ==

== ENCOUNTER 2022-07-04 02:43 | Day surgery (SDC) | payer OTHER | END 2022-07-04 23:07 | disposition home or self-care (01) | LOC: HBO 02:43 | DX: L59.8 Other specified disorders of the skin and subcutaneous tissue related to radiation (principal); Z85.819 Personal history of malignant neoplasm of unspecified site of lip, oral cavity, and pharynx; I48.92 Unspecified atrial flutter; I11.0 Hypertensive heart disease with heart failure; I50.9 Heart failure, unspecified; R73.01 Impaired fasting glucose; F10.11 Alcohol abuse, in remission; I25.10 Atherosclerotic heart disease of native coronary artery without angina pectoris | CPT/HCPCS: G0277 ==

== ENCOUNTER 2022-07-05 03:42 | Day surgery (SDC) | payer OTHER | END 2022-07-05 23:37 | disposition home or self-care (01) | LOC: HBO 03:42 | DX: L59.8 Other specified disorders of the skin and subcutaneous tissue related to radiation (principal); Z85.819 Personal history of malignant neoplasm of unspecified site of lip, oral cavity, and pharynx; I48.92 Unspecified atrial flutter; I11.0 Hypertensive heart disease with heart failure; I25.10 Atherosclerotic heart disease of native coronary artery without angina pectoris; R73.01 Impaired fasting glucose; F10.11 Alcohol abuse, in remission; I50.9 Heart failure, unspecified | CPT/HCPCS: G0277 ==

== ENCOUNTER 2022-07-06 02:22 | Day surgery (SDC) | payer OTHER | END 2022-07-06 23:13 | disposition home or self-care (01) | LOC: HBO 02:22 | DX: L59.8 Other specified disorders of the skin and subcutaneous tissue related to radiation (principal); I48.92 Unspecified atrial flutter; I25.10 Atherosclerotic heart disease of native coronary artery without angina pectoris; R73.01 Impaired fasting glucose; F10.11 Alcohol abuse, in remission; I11.0 Hypertensive heart disease with heart failure; I50.9 Heart failure, unspecified; Y84.2 Radiological procedure and radiotherapy as the cause of abnormal reaction of the patient, or of later complication, without mention of misadventure at the time of the procedure; Z85.819 Personal history of malignant neoplasm of unspecified site of lip, oral cavity, and pharynx | CPT/HCPCS: G0277 ==

== ENCOUNTER 2022-07-09 01:18 | Day surgery (SDC) | payer OTHER | END 2022-07-09 23:34 | disposition home or self-care (01) | LOC: HBO 01:18 | DX: L59.8 Other specified disorders of the skin and subcutaneous tissue related to radiation (principal); Z85.819 Personal history of malignant neoplasm of unspecified site of lip, oral cavity, and pharynx; I48.92 Unspecified atrial flutter; I11.0 Hypertensive heart disease with heart failure; I25.10 Atherosclerotic heart disease of native coronary artery without angina pectoris; R73.01 Impaired fasting glucose; F10.11 Alcohol abuse, in remission; I50.9 Heart failure, unspecified | CPT/HCPCS: G0277 ==

== ENCOUNTER 2022-07-10 02:29 | Day surgery (SDC) | payer OTHER | END 2022-07-10 23:19 | disposition home or self-care (01) | LOC: HBO 02:29 | DX: L59.8 Other specified disorders of the skin and subcutaneous tissue related to radiation (principal); Z85.819 Personal history of malignant neoplasm of unspecified site of lip, oral cavity, and pharynx; I48.92 Unspecified atrial flutter; I25.10 Atherosclerotic heart disease of native coronary artery without angina pectoris; R73.01 Impaired fasting glucose; F10.11 Alcohol abuse, in remission; I50.9 Heart failure, unspecified; I11.0 Hypertensive heart disease with heart failure | CPT/HCPCS: G0277 ==

== ENCOUNTER 2022-07-11 06:04 | Day surgery (SDC) | payer OTHER | END 2022-07-11 23:09 | disposition home or self-care (01) | LOC: HBO 06:04 | DX: L59.8 Other specified disorders of the skin and subcutaneous tissue related to radiation (principal); I48.92 Unspecified atrial flutter; I25.10 Atherosclerotic heart disease of native coronary artery without angina pectoris; R73.01 Impaired fasting glucose; F10.11 Alcohol abuse, in remission; I11.0 Hypertensive heart disease with heart failure; I50.9 Heart failure, unspecified; Z85.819 Personal history of malignant neoplasm of unspecified site of lip, oral cavity, and pharynx | CPT/HCPCS: G0277 ==

== ENCOUNTER 2022-07-12 01:38 | Day surgery (SDC) | payer OTHER | END 2022-07-12 22:40 | disposition home or self-care (01) | LOC: HBO 01:38 | DX: L59.8 Other specified disorders of the skin and subcutaneous tissue related to radiation (principal); Z85.819 Personal history of malignant neoplasm of unspecified site of lip, oral cavity, and pharynx; I48.92 Unspecified atrial flutter; I11.0 Hypertensive heart disease with heart failure; I50.9 Heart failure, unspecified; I25.10 Atherosclerotic heart disease of native coronary artery without angina pectoris; R73.01 Impaired fasting glucose; F10.11 Alcohol abuse, in remission | CPT/HCPCS: G0277 ==

== ENCOUNTER 2022-07-13 00:51 | Day surgery (SDC) | payer OTHER | END 2022-07-13 23:19 | disposition home or self-care (01) | LOC: HBO 00:51 | DX: L59.8 Other specified disorders of the skin and subcutaneous tissue related to radiation (principal); I48.92 Unspecified atrial flutter; I25.10 Atherosclerotic heart disease of native coronary artery without angina pectoris; R73.01 Impaired fasting glucose; F10.11 Alcohol abuse, in remission; I11.0 Hypertensive heart disease with heart failure; I50.9 Heart failure, unspecified | CPT/HCPCS: G0277 ==

== ENCOUNTER 2022-07-16 01:48 | Day surgery (SDC) | payer OTHER | END 2022-07-16 23:10 | disposition home or self-care (01) | LOC: HBO 01:48 | DX: L59.8 Other specified disorders of the skin and subcutaneous tissue related to radiation (principal); Z85.819 Personal history of malignant neoplasm of unspecified site of lip, oral cavity, and pharynx; I48.92 Unspecified atrial flutter; I11.0 Hypertensive heart disease with heart failure; I25.10 Atherosclerotic heart disease of native coronary artery without angina pectoris; R73.01 Impaired fasting glucose; F10.11 Alcohol abuse, in remission; I50.9 Heart failure, unspecified | CPT/HCPCS: G0277 ==

== ENCOUNTER 2022-07-17 02:59 | Day surgery (SDC) | payer OTHER | END 2022-07-17 23:09 | disposition home or self-care (01) | LOC: HBO 02:59 | DX: L59.8 Other specified disorders of the skin and subcutaneous tissue related to radiation (principal); Y84.2 Radiological procedure and radiotherapy as the cause of abnormal reaction of the patient, or of later complication, without mention of misadventure at the time of the procedure; I48.92 Unspecified atrial flutter; I25.10 Atherosclerotic heart disease of native coronary artery without angina pectoris; R73.01 Impaired fasting glucose; F10.11 Alcohol abuse, in remission; I11.0 Hypertensive heart disease with heart failure; I50.9 Heart failure, unspecified; Z85.819 Personal history of malignant neoplasm of unspecified site of lip, oral cavity, and pharynx | CPT/HCPCS: G0277 ==

== ENCOUNTER 2022-07-18 02:00 | Day surgery (SDC) | payer OTHER | END 2022-07-18 22:59 | disposition home or self-care (01) | LOC: HBO 02:00 | DX: L59.8 Other specified disorders of the skin and subcutaneous tissue related to radiation (principal); Z85.819 Personal history of malignant neoplasm of unspecified site of lip, oral cavity, and pharynx; I48.92 Unspecified atrial flutter; I11.0 Hypertensive heart disease with heart failure; R73.01 Impaired fasting glucose; F10.11 Alcohol abuse, in remission; I50.9 Heart failure, unspecified | CPT/HCPCS: G0277 ==

== ENCOUNTER 2022-07-20 01:17 | Day surgery (SDC) | payer OTHER | END 2022-07-20 23:19 | disposition home or self-care (01) | LOC: HBO 01:17 | DX: L59.8 Other specified disorders of the skin and subcutaneous tissue related to radiation (principal); I48.92 Unspecified atrial flutter; I11.0 Hypertensive heart disease with heart failure; I50.9 Heart failure, unspecified; I25.10 Atherosclerotic heart disease of native coronary artery without angina pectoris; R73.01 Impaired fasting glucose; F10.11 Alcohol abuse, in remission | CPT/HCPCS: G0277 ==

== ENCOUNTER 2022-07-23 01:23 | Day surgery (SDC) | payer OTHER | END 2022-07-23 23:03 | disposition home or self-care (01) | LOC: HBO 01:23 | DX: L59.8 Other specified disorders of the skin and subcutaneous tissue related to radiation (principal); I48.92 Unspecified atrial flutter; I25.10 Atherosclerotic heart disease of native coronary artery without angina pectoris; R73.01 Impaired fasting glucose; F10.11 Alcohol abuse, in remission; I11.0 Hypertensive heart disease with heart failure; I50.9 Heart failure, unspecified; Z85.819 Personal history of malignant neoplasm of unspecified site of lip, oral cavity, and pharynx | CPT/HCPCS: G0277 ==

== ENCOUNTER 2022-07-24 02:14 | Day surgery (SDC) | payer OTHER | END 2022-07-24 22:47 | disposition home or self-care (01) | LOC: HBO 02:14 | DX: L59.8 Other specified disorders of the skin and subcutaneous tissue related to radiation (principal); I48.92 Unspecified atrial flutter; I25.10 Atherosclerotic heart disease of native coronary artery without angina pectoris; R73.01 Impaired fasting glucose; F10.11 Alcohol abuse, in remission; I11.9 Hypertensive heart disease without heart failure; I50.9 Heart failure, unspecified; Z85.819 Personal history of malignant neoplasm of unspecified site of lip, oral cavity, and pharynx | CPT/HCPCS: G0277 ==

== ENCOUNTER 2022-07-25 01:10 | Day surgery (SDC) | payer OTHER | END 2022-07-26 00:05 | disposition home or self-care (01) | LOC: WOUND 01:10 | DX: L59.8 Other specified disorders of the skin and subcutaneous tissue related to radiation (principal); Z85.819 Personal history of malignant neoplasm of unspecified site of lip, oral cavity, and pharynx; I48.92 Unspecified atrial flutter; I11.0 Hypertensive heart disease with heart failure; I25.10 Atherosclerotic heart disease of native coronary artery without angina pectoris; R73.01 Impaired fasting glucose; F10.11 Alcohol abuse, in remission; I50.9 Heart failure, unspecified | CPT/HCPCS: G0463 ==

== ENCOUNTER 2022-07-25 01:12 | Day surgery (SDC) | payer OTHER | END 2022-07-26 00:05 | disposition home or self-care (01) | LOC: HBO 01:12 | DX: L59.8 Other specified disorders of the skin and subcutaneous tissue related to radiation (principal); Z85.819 Personal history of malignant neoplasm of unspecified site of lip, oral cavity, and pharynx; I48.92 Unspecified atrial flutter; I11.0 Hypertensive heart disease with heart failure; I25.10 Atherosclerotic heart disease of native coronary artery without angina pectoris; R73.01 Impaired fasting glucose; F10.11 Alcohol abuse, in remission; I50.9 Heart failure, unspecified | CPT/HCPCS: G0277 ==

== ENCOUNTER 2022-07-26 01:13 | Day surgery (SDC) | payer OTHER | END 2022-07-26 23:16 | disposition home or self-care (01) | LOC: HBO 01:13 | DX: L59.8 Other specified disorders of the skin and subcutaneous tissue related to radiation (principal); Z85.819 Personal history of malignant neoplasm of unspecified site of lip, oral cavity, and pharynx; I48.92 Unspecified atrial flutter; I11.0 Hypertensive heart disease with heart failure; I25.10 Atherosclerotic heart disease of native coronary artery without angina pectoris; R73.01 Impaired fasting glucose; F10.11 Alcohol abuse, in remission; I50.9 Heart failure, unspecified | CPT/HCPCS: G0277 ==

== ENCOUNTER 2022-07-27 02:05 | Day surgery (SDC) | payer OTHER | END 2022-07-28 23:38 | disposition home or self-care (01) | LOC: HBO 02:05 | DX: L59.8 Other specified disorders of the skin and subcutaneous tissue related to radiation (principal); Z85.819 Personal history of malignant neoplasm of unspecified site of lip, oral cavity, and pharynx; I48.92 Unspecified atrial flutter; I11.0 Hypertensive heart disease with heart failure; I25.10 Atherosclerotic heart disease of native coronary artery without angina pectoris; R73.01 Impaired fasting glucose; F10.11 Alcohol abuse, in remission; I50.9 Heart failure, unspecified | CPT/HCPCS: G0277 ==

== ENCOUNTER 2022-08-07 01:29 | Day surgery (SDC) | payer OTHER | END 2022-08-07 22:49 | disposition home or self-care (01) | LOC: HBO 01:29 | DX: L59.8 Other specified disorders of the skin and subcutaneous tissue related to radiation (principal); Z85.819 Personal history of malignant neoplasm of unspecified site of lip, oral cavity, and pharynx; I48.92 Unspecified atrial flutter; I11.0 Hypertensive heart disease with heart failure; I25.10 Atherosclerotic heart disease of native coronary artery without angina pectoris; R73.01 Impaired fasting glucose; F10.11 Alcohol abuse, in remission; I50.9 Heart failure, unspecified | CPT/HCPCS: G0277 ==

== ENCOUNTER 2022-08-08 00:55 | Day surgery (SDC) | payer OTHER | END 2022-08-08 23:17 | disposition home or self-care (01) | LOC: HBO 00:55 | DX: L59.8 Other specified disorders of the skin and subcutaneous tissue related to radiation (principal); Z85.819 Personal history of malignant neoplasm of unspecified site of lip, oral cavity, and pharynx; I48.92 Unspecified atrial flutter; I11.0 Hypertensive heart disease with heart failure; I25.10 Atherosclerotic heart disease of native coronary artery without angina pectoris; R73.01 Impaired fasting glucose; F10.11 Alcohol abuse, in remission; I50.9 Heart failure, unspecified | CPT/HCPCS: G0277 ==

== ENCOUNTER 2022-08-15 04:10 | Day surgery (SDC) | payer OTHER | END 2022-08-15 23:21 | disposition home or self-care (01) | LOC: HBO 04:10 | DX: L59.8 Other specified disorders of the skin and subcutaneous tissue related to radiation (principal); I11.0 Hypertensive heart disease with heart failure; I50.9 Heart failure, unspecified; I25.10 Atherosclerotic heart disease of native coronary artery without angina pectoris; R73.01 Impaired fasting glucose; F10.11 Alcohol abuse, in remission; Z85.819 Personal history of malignant neoplasm of unspecified site of lip, oral cavity, and pharynx | CPT/HCPCS: G0277 ==

== ENCOUNTER 2022-08-16 01:58 | Day surgery (SDC) | payer OTHER | END 2022-08-16 22:57 | disposition home or self-care (01) | LOC: HBO 01:58 | DX: L59.8 Other specified disorders of the skin and subcutaneous tissue related to radiation (principal); I48.92 Unspecified atrial flutter; I11.0 Hypertensive heart disease with heart failure; I50.9 Heart failure, unspecified; I25.10 Atherosclerotic heart disease of native coronary artery without angina pectoris; F10.11 Alcohol abuse, in remission; R73.01 Impaired fasting glucose; Z85.819 Personal history of malignant neoplasm of unspecified site of lip, oral cavity, and pharynx | CPT/HCPCS: G0277 ==

== ENCOUNTER 2022-08-17 03:14 | Day surgery (SDC) | payer OTHER | END 2022-08-17 23:19 | disposition home or self-care (01) | LOC: HBO 03:14 | DX: L59.8 Other specified disorders of the skin and subcutaneous tissue related to radiation (principal); Z85.819 Personal history of malignant neoplasm of unspecified site of lip, oral cavity, and pharynx; I48.92 Unspecified atrial flutter; I25.10 Atherosclerotic heart disease of native coronary artery without angina pectoris; R73.01 Impaired fasting glucose; F10.11 Alcohol abuse, in remission; I50.9 Heart failure, unspecified; I11.0 Hypertensive heart disease with heart failure | CPT/HCPCS: G0277 ==

== ENCOUNTER 2022-08-20 03:07 | Day surgery (SDC) | payer OTHER | END 2022-08-20 23:12 | disposition home or self-care (01) | LOC: HBO 03:07 | DX: L59.8 Other specified disorders of the skin and subcutaneous tissue related to radiation (principal); I11.0 Hypertensive heart disease with heart failure; I50.9 Heart failure, unspecified; I48.91 Unspecified atrial fibrillation; I25.10 Atherosclerotic heart disease of native coronary artery without angina pectoris; R73.01 Impaired fasting glucose; F10.11 Alcohol abuse, in remission; Z85.819 Personal history of malignant neoplasm of unspecified site of lip, oral cavity, and pharynx | CPT/HCPCS: G0277 ==

== ENCOUNTER 2022-08-21 01:24 | Day surgery (SDC) | payer OTHER | END 2022-08-21 22:51 | disposition home or self-care (01) | LOC: HBO 01:24 | DX: L59.8 Other specified disorders of the skin and subcutaneous tissue related to radiation (principal); Z85.819 Personal history of malignant neoplasm of unspecified site of lip, oral cavity, and pharynx; I48.92 Unspecified atrial flutter; I25.10 Atherosclerotic heart disease of native coronary artery without angina pectoris; R73.01 Impaired fasting glucose; F10.11 Alcohol abuse, in remission; I50.9 Heart failure, unspecified; I11.0 Hypertensive heart disease with heart failure | CPT/HCPCS: G0277 ==

== ENCOUNTER 2022-08-22 05:30 | Day surgery (SDC) | payer OTHER | END 2022-08-22 23:07 | disposition home or self-care (01) | LOC: HBO 05:30 | DX: L59.8 Other specified disorders of the skin and subcutaneous tissue related to radiation (principal); I48.92 Unspecified atrial flutter; I25.10 Atherosclerotic heart disease of native coronary artery without angina pectoris; R73.01 Impaired fasting glucose; F10.11 Alcohol abuse, in remission; I11.0 Hypertensive heart disease with heart failure; I50.9 Heart failure, unspecified; Z85.819 Personal history of malignant neoplasm of unspecified site of lip, oral cavity, and pharynx | CPT/HCPCS: G0277 ==

== ENCOUNTER 2022-08-27 01:19 | Day surgery (SDC) | payer OTHER | END 2022-08-27 23:03 | disposition home or self-care (01) | LOC: HBO 01:19 | DX: L59.8 Other specified disorders of the skin and subcutaneous tissue related to radiation (principal); Z85.819 Personal history of malignant neoplasm of unspecified site of lip, oral cavity, and pharynx; I48.92 Unspecified atrial flutter; I11.0 Hypertensive heart disease with heart failure; I25.10 Atherosclerotic heart disease of native coronary artery without angina pectoris; R73.01 Impaired fasting glucose; F10.11 Alcohol abuse, in remission; I50.9 Heart failure, unspecified | CPT/HCPCS: G0277 ==

== ENCOUNTER 2022-08-29 01:40 | Day surgery (SDC) | payer OTHER | END 2022-08-29 22:58 | disposition home or self-care (01) | LOC: HBO 01:40 | DX: L59.8 Other specified disorders of the skin and subcutaneous tissue related to radiation (principal); I48.92 Unspecified atrial flutter; I11.0 Hypertensive heart disease with heart failure; I50.9 Heart failure, unspecified; I25.10 Atherosclerotic heart disease of native coronary artery without angina pectoris; R73.01 Impaired fasting glucose; F10.11 Alcohol abuse, in remission; Z85.819 Personal history of malignant neoplasm of unspecified site of lip, oral cavity, and pharynx | CPT/HCPCS: G0277 ==

== ENCOUNTER 2022-08-30 02:58 | Day surgery (SDC) | payer OTHER | END 2022-08-30 23:13 | disposition home or self-care (01) | LOC: HBO 02:58 | DX: L59.8 Other specified disorders of the skin and subcutaneous tissue related to radiation (principal); I48.92 Unspecified atrial flutter; I25.10 Atherosclerotic heart disease of native coronary artery without angina pectoris; R73.01 Impaired fasting glucose; F10.11 Alcohol abuse, in remission; I11.0 Hypertensive heart disease with heart failure; I50.9 Heart failure, unspecified; Z85.819 Personal history of malignant neoplasm of unspecified site of lip, oral cavity, and pharynx | CPT/HCPCS: G0277 ==

== ENCOUNTER 2022-08-31 02:31 | Day surgery (SDC) | payer OTHER | END 2022-08-31 22:55 | disposition home or self-care (01) | LOC: HBO 02:31 | DX: L59.8 Other specified disorders of the skin and subcutaneous tissue related to radiation (principal); I48.92 Unspecified atrial flutter; I25.10 Atherosclerotic heart disease of native coronary artery without angina pectoris; R73.01 Impaired fasting glucose; I11.0 Hypertensive heart disease with heart failure; I50.9 Heart failure, unspecified; F10.11 Alcohol abuse, in remission; Z85.819 Personal history of malignant neoplasm of unspecified site of lip, oral cavity, and pharynx | CPT/HCPCS: G0277 ==

== ENCOUNTER 2022-09-03 00:15 | Day surgery (SDC) | payer OTHER | END 2022-09-03 23:04 | disposition home or self-care (01) | LOC: WOUND 00:15 | DX: L59.8 Other specified disorders of the skin and subcutaneous tissue related to radiation (principal); I48.92 Unspecified atrial flutter; I11.0 Hypertensive heart disease with heart failure; I50.9 Heart failure, unspecified; I25.10 Atherosclerotic heart disease of native coronary artery without angina pectoris; R73.01 Impaired fasting glucose; F10.11 Alcohol abuse, in remission; Z85.819 Personal history of malignant neoplasm of unspecified site of lip, oral cavity, and pharynx | CPT/HCPCS: G0463 ==

== ENCOUNTER 2022-09-03 00:17 | Day surgery (SDC) | payer OTHER | END 2022-09-03 23:04 | disposition home or self-care (01) | LOC: HBO 00:17 | DX: L59.8 Other specified disorders of the skin and subcutaneous tissue related to radiation (principal); R73.01 Impaired fasting glucose; F10.11 Alcohol abuse, in remission; I11.0 Hypertensive heart disease with heart failure; I50.9 Heart failure, unspecified; I25.10 Atherosclerotic heart disease of native coronary artery without angina pectoris; I48.92 Unspecified atrial flutter; Z85.819 Personal history of malignant neoplasm of unspecified site of lip, oral cavity, and pharynx | CPT/HCPCS: G0277 ==

== ENCOUNTER 2022-09-04 00:29 | Day surgery (SDC) | payer OTHER | END 2022-09-04 23:00 | disposition home or self-care (01) | LOC: HBO 00:29 | DX: L59.8 Other specified disorders of the skin and subcutaneous tissue related to radiation (principal); I48.92 Unspecified atrial flutter; I25.10 Atherosclerotic heart disease of native coronary artery without angina pectoris; R73.01 Impaired fasting glucose; F10.11 Alcohol abuse, in remission; I50.9 Heart failure, unspecified; I11.0 Hypertensive heart disease with heart failure; Z85.819 Personal history of malignant neoplasm of unspecified site of lip, oral cavity, and pharynx | CPT/HCPCS: G0277 ==

== ENCOUNTER 2022-09-05 00:34 | Day surgery (SDC) | payer OTHER | END 2022-09-05 23:41 | disposition home or self-care (01) | LOC: HBO 00:34 | DX: L59.8 Other specified disorders of the skin and subcutaneous tissue related to radiation (principal); Z85.819 Personal history of malignant neoplasm of unspecified site of lip, oral cavity, and pharynx; I48.92 Unspecified atrial flutter; I25.10 Atherosclerotic heart disease of native coronary artery without angina pectoris; R73.01 Impaired fasting glucose; F10.11 Alcohol abuse, in remission; I50.9 Heart failure, unspecified; I11.0 Hypertensive heart disease with heart failure | CPT/HCPCS: G0277 ==

== ENCOUNTER 2022-09-06 03:41 | Day surgery (SDC) | payer OTHER | END 2022-09-06 23:39 | disposition home or self-care (01) | LOC: HBO 03:41 | DX: L59.8 Other specified disorders of the skin and subcutaneous tissue related to radiation (principal); I48.92 Unspecified atrial flutter; I25.10 Atherosclerotic heart disease of native coronary artery without angina pectoris; R73.01 Impaired fasting glucose; F10.11 Alcohol abuse, in remission; I11.0 Hypertensive heart disease with heart failure; I50.9 Heart failure, unspecified; Z85.819 Personal history of malignant neoplasm of unspecified site of lip, oral cavity, and pharynx | CPT/HCPCS: G0277 ==

== ENCOUNTER 2022-09-19 08:00 | Day surgery (SDC) | payer OTHER | END 2022-09-19 23:59 | disposition home or self-care (01) | LOC: HBO 08:00 | DX: L59.8 Other specified disorders of the skin and subcutaneous tissue related to radiation (principal); I48.92 Unspecified atrial flutter; I11.0 Hypertensive heart disease with heart failure; I50.9 Heart failure, unspecified; I25.10 Atherosclerotic heart disease of native coronary artery without angina pectoris; R73.01 Impaired fasting glucose; F10.11 Alcohol abuse, in remission; Z85.819 Personal history of malignant neoplasm of unspecified site of lip, oral cavity, and pharynx | CPT/HCPCS: G0277 ==

== ENCOUNTER 2022-09-20 03:33 | Day surgery (SDC) | payer OTHER | END 2022-09-20 22:43 | disposition home or self-care (01) | LOC: HBO 03:33 | DX: L59.8 Other specified disorders of the skin and subcutaneous tissue related to radiation (principal); I48.92 Unspecified atrial flutter; I11.0 Hypertensive heart disease with heart failure; I50.9 Heart failure, unspecified; I25.10 Atherosclerotic heart disease of native coronary artery without angina pectoris; R73.01 Impaired fasting glucose; F10.11 Alcohol abuse, in remission; Z85.819 Personal history of malignant neoplasm of unspecified site of lip, oral cavity, and pharynx | CPT/HCPCS: G0277 ==

== ENCOUNTER 2022-09-21 00:02 | Day surgery (SDC) | payer OTHER | END 2022-09-21 23:59 | disposition home or self-care (01) | LOC: HBO 00:02 | DX: L59.8 Other specified disorders of the skin and subcutaneous tissue related to radiation (principal); I48.92 Unspecified atrial flutter; I25.10 Atherosclerotic heart disease of native coronary artery without angina pectoris; F10.11 Alcohol abuse, in remission; I11.0 Hypertensive heart disease with heart failure; I50.9 Heart failure, unspecified; R73.01 Impaired fasting glucose; Z85.819 Personal history of malignant neoplasm of unspecified site of lip, oral cavity, and pharynx | CPT/HCPCS: G0277 ==

== ENCOUNTER 2022-09-24 00:14 | Day surgery (SDC) | payer OTHER | END 2022-09-24 22:50 | disposition home or self-care (01) | LOC: HBO 00:14 | DX: L59.8 Other specified disorders of the skin and subcutaneous tissue related to radiation (principal); Z85.819 Personal history of malignant neoplasm of unspecified site of lip, oral cavity, and pharynx; I48.92 Unspecified atrial flutter; I11.0 Hypertensive heart disease with heart failure; I25.10 Atherosclerotic heart disease of native coronary artery without angina pectoris; R73.01 Impaired fasting glucose; F10.11 Alcohol abuse, in remission; I50.9 Heart failure, unspecified | CPT/HCPCS: G0277 ==

== ENCOUNTER 2022-09-25 00:21 | Day surgery (SDC) | payer OTHER | END 2022-09-25 22:48 | disposition home or self-care (01) | LOC: HBO 00:21 | DX: L59.8 Other specified disorders of the skin and subcutaneous tissue related to radiation (principal); Y84.2 Radiological procedure and radiotherapy as the cause of abnormal reaction of the patient, or of later complication, without mention of misadventure at the time of the procedure; I48.92 Unspecified atrial flutter; I25.10 Atherosclerotic heart disease of native coronary artery without angina pectoris; F10.11 Alcohol abuse, in remission; I11.0 Hypertensive heart disease with heart failure; I50.9 Heart failure, unspecified; R73.01 Impaired fasting glucose; Z85.819 Personal history of malignant neoplasm of unspecified site of lip, oral cavity, and pharynx | CPT/HCPCS: G0277 ==

== ENCOUNTER 2022-09-26 00:36 | Day surgery (SDC) | payer OTHER | END 2022-09-26 23:34 | disposition home or self-care (01) | LOC: HBO 00:36 | DX: L59.8 Other specified disorders of the skin and subcutaneous tissue related to radiation (principal); Z85.819 Personal history of malignant neoplasm of unspecified site of lip, oral cavity, and pharynx; I48.92 Unspecified atrial flutter; I11.0 Hypertensive heart disease with heart failure; I50.9 Heart failure, unspecified; I25.10 Atherosclerotic heart disease of native coronary artery without angina pectoris; R73.01 Impaired fasting glucose; F10.11 Alcohol abuse, in remission | CPT/HCPCS: G0277 ==

== ENCOUNTER 2022-10-01 01:00 | Day surgery (SDC) | payer OTHER | END 2022-10-01 23:42 | disposition home or self-care (01) | LOC: HBO 01:00 | DX: L59.8 Other specified disorders of the skin and subcutaneous tissue related to radiation (principal); Y84.2 Radiological procedure and radiotherapy as the cause of abnormal reaction of the patient, or of later complication, without mention of misadventure at the time of the procedure; I48.92 Unspecified atrial flutter; I25.10 Atherosclerotic heart disease of native coronary artery without angina pectoris; R73.01 Impaired fasting glucose; F10.11 Alcohol abuse, in remission; I11.0 Hypertensive heart disease with heart failure; I50.9 Heart failure, unspecified; Z85.819 Personal history of malignant neoplasm of unspecified site of lip, oral cavity, and pharynx | CPT/HCPCS: G0277 ==

== ENCOUNTER 2022-10-01 08:00 | Day surgery (SDC) | payer OTHER | END 2022-10-01 23:59 | disposition home or self-care (01) | LOC: WOUND 08:00 | DX: L59.8 Other specified disorders of the skin and subcutaneous tissue related to radiation (principal); I48.92 Unspecified atrial flutter; I11.0 Hypertensive heart disease with heart failure; I50.9 Heart failure, unspecified; I25.10 Atherosclerotic heart disease of native coronary artery without angina pectoris; R73.01 Impaired fasting glucose; F10.11 Alcohol abuse, in remission; Z85.819 Personal history of malignant neoplasm of unspecified site of lip, oral cavity, and pharynx | CPT/HCPCS: G0463 ==

== ENCOUNTER 2022-10-03 01:16 | Day surgery (SDC) | payer OTHER | END 2022-10-03 22:51 | disposition home or self-care (01) | LOC: HBO 01:16 | DX: L59.8 Other specified disorders of the skin and subcutaneous tissue related to radiation (principal); Z85.819 Personal history of malignant neoplasm of unspecified site of lip, oral cavity, and pharynx; I48.92 Unspecified atrial flutter; I25.10 Atherosclerotic heart disease of native coronary artery without angina pectoris; R73.01 Impaired fasting glucose; F10.11 Alcohol abuse, in remission; I50.9 Heart failure, unspecified; I11.0 Hypertensive heart disease with heart failure | CPT/HCPCS: G0277 ==

== ENCOUNTER 2022-10-04 02:06 | Day surgery (SDC) | payer OTHER | END 2022-10-04 22:50 | disposition home or self-care (01) | LOC: HBO 02:06 | DX: L59.8 Other specified disorders of the skin and subcutaneous tissue related to radiation (principal); Z85.819 Personal history of malignant neoplasm of unspecified site of lip, oral cavity, and pharynx; I48.92 Unspecified atrial flutter; I11.0 Hypertensive heart disease with heart failure; I25.10 Atherosclerotic heart disease of native coronary artery without angina pectoris; R73.01 Impaired fasting glucose; F10.11 Alcohol abuse, in remission; I50.9 Heart failure, unspecified | CPT/HCPCS: G0277 ==

== ENCOUNTER 2022-10-05 00:46 | Day surgery (SDC) | payer OTHER | END 2022-10-05 23:22 | disposition home or self-care (01) | LOC: HBO 00:46 | DX: L59.8 Other specified disorders of the skin and subcutaneous tissue related to radiation (principal); Y84.2 Radiological procedure and radiotherapy as the cause of abnormal reaction of the patient, or of later complication, without mention of misadventure at the time of the procedure; I48.92 Unspecified atrial flutter; I11.0 Hypertensive heart disease with heart failure; I50.9 Heart failure, unspecified; I25.10 Atherosclerotic heart disease of native coronary artery without angina pectoris; R73.01 Impaired fasting glucose; F10.11 Alcohol abuse, in remission; Z85.819 Personal history of malignant neoplasm of unspecified site of lip, oral cavity, and pharynx | CPT/HCPCS: G0277 ==

== ENCOUNTER 2022-10-08 01:17 | Day surgery (SDC) | payer OTHER | END 2022-10-08 22:58 | disposition home or self-care (01) | LOC: HBO 01:17 | DX: L59.8 Other specified disorders of the skin and subcutaneous tissue related to radiation (principal); Z85.819 Personal history of malignant neoplasm of unspecified site of lip, oral cavity, and pharynx; I48.92 Unspecified atrial flutter; I11.0 Hypertensive heart disease with heart failure; I25.10 Atherosclerotic heart disease of native coronary artery without angina pectoris; I50.9 Heart failure, unspecified; F10.11 Alcohol abuse, in remission | CPT/HCPCS: G0277 ==

== ENCOUNTER 2022-10-09 00:29 | Day surgery (SDC) | payer OTHER | END 2022-10-09 23:13 | disposition home or self-care (01) | LOC: HBO 00:29 | DX: L59.8 Other specified disorders of the skin and subcutaneous tissue related to radiation (principal); Z85.819 Personal history of malignant neoplasm of unspecified site of lip, oral cavity, and pharynx; I48.92 Unspecified atrial flutter; I11.0 Hypertensive heart disease with heart failure; I50.9 Heart failure, unspecified; I25.10 Atherosclerotic heart disease of native coronary artery without angina pectoris; R73.01 Impaired fasting glucose; F10.11 Alcohol abuse, in remission | CPT/HCPCS: G0277 ==

== ENCOUNTER 2022-10-10 02:55 | Day surgery (SDC) | payer OTHER | END 2022-10-10 23:24 | disposition home or self-care (01) | LOC: HBO 02:55 | DX: L59.8 Other specified disorders of the skin and subcutaneous tissue related to radiation (principal); Z85.819 Personal history of malignant neoplasm of unspecified site of lip, oral cavity, and pharynx; I48.92 Unspecified atrial flutter; I11.0 Hypertensive heart disease with heart failure; I50.9 Heart failure, unspecified; I25.10 Atherosclerotic heart disease of native coronary artery without angina pectoris; F10.11 Alcohol abuse, in remission | CPT/HCPCS: G0277 ==

== ENCOUNTER 2022-10-10 02:59 | Day surgery (SDC) | payer OTHER | END 2022-10-10 23:24 | disposition home or self-care (01) | LOC: WOUND 02:59 | DX: T81.89XA Other complications of procedures, not elsewhere classified, initial encounter (principal); L59.8 Other specified disorders of the skin and subcutaneous tissue related to radiation; Z85.819 Personal history of malignant neoplasm of unspecified site of lip, oral cavity, and pharynx; I48.92 Unspecified atrial flutter; I11.0 Hypertensive heart disease with heart failure; I25.10 Atherosclerotic heart disease of native coronary artery without angina pectoris; F10.11 Alcohol abuse, in remission; I50.9 Heart failure, unspecified | CPT/HCPCS: G0463 ==

== ENCOUNTER 2022-10-16 00:59 | Day surgery (SDC) | payer OTHER | END 2022-10-16 22:47 | disposition home or self-care (01) | LOC: HBO 00:59 | DX: L59.8 Other specified disorders of the skin and subcutaneous tissue related to radiation (principal); Z85.819 Personal history of malignant neoplasm of unspecified site of lip, oral cavity, and pharynx; I48.92 Unspecified atrial flutter; I11.0 Hypertensive heart disease with heart failure; I50.9 Heart failure, unspecified; I25.10 Atherosclerotic heart disease of native coronary artery without angina pectoris; F10.11 Alcohol abuse, in remission | CPT/HCPCS: G0277 ==

== ENCOUNTER 2022-10-17 01:59 | Day surgery (SDC) | payer OTHER | END 2022-10-17 22:42 | disposition home or self-care (01) | LOC: WOUND 01:59 | DX: T81.89XA Other complications of procedures, not elsewhere classified, initial encounter (principal); L59.8 Other specified disorders of the skin and subcutaneous tissue related to radiation; Z85.819 Personal history of malignant neoplasm of unspecified site of lip, oral cavity, and pharynx; I48.92 Unspecified atrial flutter; I11.0 Hypertensive heart disease with heart failure; I25.10 Atherosclerotic heart disease of native coronary artery without angina pectoris; F10.11 Alcohol abuse, in remission; I50.9 Heart failure, unspecified | CPT/HCPCS: G0463 ==

== ENCOUNTER 2022-10-22 00:26 | Day surgery (SDC) | payer OTHER | END 2022-10-22 23:17 | disposition home or self-care (01) | LOC: HBO | DX: L59.8 Other specified disorders of the skin and subcutaneous tissue related to radiation (principal); Y84.2 Radiological procedure and radiotherapy as the cause of abnormal reaction of the patient, or of later complication, without mention of misadventure at the time of the procedure; Z85.819 Personal history of malignant neoplasm of unspecified site of lip, oral cavity, and pharynx; I48.92 Unspecified atrial flutter; I11.0 Hypertensive heart disease with heart failure; I50.9 Heart failure, unspecified; I25.10 Atherosclerotic heart disease of native coronary artery without angina pectoris; R73.01 Impaired fasting glucose; F10.11 Alcohol abuse, in remission | CPT/HCPCS: G0277 ==

== ENCOUNTER 2022-10-23 02:08 | Day surgery (SDC) | payer OTHER | END 2022-10-23 23:03 | disposition home or self-care (01) | LOC: HBO 02:08 | DX: L59.8 Other specified disorders of the skin and subcutaneous tissue related to radiation (principal); Y84.2 Radiological procedure and radiotherapy as the cause of abnormal reaction of the patient, or of later complication, without mention of misadventure at the time of the procedure; Z85.819 Personal history of malignant neoplasm of unspecified site of lip, oral cavity, and pharynx; I48.92 Unspecified atrial flutter; I11.0 Hypertensive heart disease with heart failure; I50.9 Heart failure, unspecified; I25.10 Atherosclerotic heart disease of native coronary artery without angina pectoris; F10.11 Alcohol abuse, in remission; R73.01 Impaired fasting glucose | CPT/HCPCS: G0277 ==

== ENCOUNTER 2022-10-25 02:42 | Day surgery (SDC) | payer OTHER | END 2022-10-25 22:53 | disposition home or self-care (01) | LOC: HBO 02:42 | DX: L59.8 Other specified disorders of the skin and subcutaneous tissue related to radiation (principal); Z85.819 Personal history of malignant neoplasm of unspecified site of lip, oral cavity, and pharynx; I48.92 Unspecified atrial flutter; I25.10 Atherosclerotic heart disease of native coronary artery without angina pectoris; R73.01 Impaired fasting glucose; F10.11 Alcohol abuse, in remission; I50.9 Heart failure, unspecified; I11.9 Hypertensive heart disease without heart failure | CPT/HCPCS: G0277 ==

== ENCOUNTER 2022-10-25 02:51 | Day surgery (SDC) | payer OTHER | END 2022-10-25 22:54 | disposition home or self-care (01) | LOC: WOUND 02:51 | DX: L59.8 Other specified disorders of the skin and subcutaneous tissue related to radiation (principal); Z85.819 Personal history of malignant neoplasm of unspecified site of lip, oral cavity, and pharynx; I48.92 Unspecified atrial flutter; I11.0 Hypertensive heart disease with heart failure; I50.9 Heart failure, unspecified; I25.10 Atherosclerotic heart disease of native coronary artery without angina pectoris; F10.11 Alcohol abuse, in remission | CPT/HCPCS: G0463 ==

== ENCOUNTER 2022-10-26 02:21 | Day surgery (SDC) | payer OTHER | END 2022-10-26 23:01 | disposition home or self-care (01) | LOC: HBO 02:21 | DX: L59.8 Other specified disorders of the skin and subcutaneous tissue related to radiation (principal); Y84.2 Radiological procedure and radiotherapy as the cause of abnormal reaction of the patient, or of later complication, without mention of misadventure at the time of the procedure; I11.0 Hypertensive heart disease with heart failure; I50.9 Heart failure, unspecified; I48.92 Unspecified atrial flutter; I25.10 Atherosclerotic heart disease of native coronary artery without angina pectoris; R73.01 Impaired fasting glucose; F10.11 Alcohol abuse, in remission; Z85.819 Personal history of malignant neoplasm of unspecified site of lip, oral cavity, and pharynx | CPT/HCPCS: G0277 ==

== ENCOUNTER 2022-11-06 02:25 | Day surgery (SDC) | payer OTHER | END 2022-11-06 23:10 | disposition home or self-care (01) | LOC: HBO 02:25 | DX: L59.8 Other specified disorders of the skin and subcutaneous tissue related to radiation (principal); Z85.819 Personal history of malignant neoplasm of unspecified site of lip, oral cavity, and pharynx; I48.92 Unspecified atrial flutter; I11.0 Hypertensive heart disease with heart failure; I50.9 Heart failure, unspecified; I25.10 Atherosclerotic heart disease of native coronary artery without angina pectoris; F10.11 Alcohol abuse, in remission; R73.01 Impaired fasting glucose | CPT/HCPCS: G0277 ==

== ENCOUNTER 2022-11-07 02:08 | Day surgery (SDC) | payer OTHER | END 2022-11-07 23:12 | disposition home or self-care (01) | LOC: HBO 02:08 | DX: L59.8 Other specified disorders of the skin and subcutaneous tissue related to radiation (principal); Y84.2 Radiological procedure and radiotherapy as the cause of abnormal reaction of the patient, or of later complication, without mention of misadventure at the time of the procedure; I11.0 Hypertensive heart disease with heart failure; I50.9 Heart failure, unspecified; I25.10 Atherosclerotic heart disease of native coronary artery without angina pectoris; I48.92 Unspecified atrial flutter; R73.01 Impaired fasting glucose; F10.11 Alcohol abuse, in remission; Z85.819 Personal history of malignant neoplasm of unspecified site of lip, oral cavity, and pharynx | CPT/HCPCS: G0277 ==

== ENCOUNTER 2022-11-07 09:23 | Day surgery (SDC) | payer OTHER | END 2022-11-07 23:12 | disposition home or self-care (01) | LOC: WOUND 09:23 | DX: T81.89XA Other complications of procedures, not elsewhere classified, initial encounter (principal); L59.8 Other specified disorders of the skin and subcutaneous tissue related to radiation; Z85.819 Personal history of malignant neoplasm of unspecified site of lip, oral cavity, and pharynx; I48.92 Unspecified atrial flutter; I25.10 Atherosclerotic heart disease of native coronary artery without angina pectoris; I11.0 Hypertensive heart disease with heart failure; I50.9 Heart failure, unspecified; R73.01 Impaired fasting glucose; F10.11 Alcohol abuse, in remission | CPT/HCPCS: G0463 ==

== ENCOUNTER 2022-11-12 01:06 | Day surgery (SDC) | payer OTHER | END 2022-11-12 23:02 | disposition home or self-care (01) | LOC: HBO 01:06 | DX: L59.8 Other specified disorders of the skin and subcutaneous tissue related to radiation (principal); Z85.819 Personal history of malignant neoplasm of unspecified site of lip, oral cavity, and pharynx; T81.31XS Disruption of external operation (surgical) wound, not elsewhere classified, sequela; I48.92 Unspecified atrial flutter; I25.10 Atherosclerotic heart disease of native coronary artery without angina pectoris; R73.01 Impaired fasting glucose; F10.11 Alcohol abuse, in remission; I50.9 Heart failure, unspecified; I11.0 Hypertensive heart disease with heart failure | CPT/HCPCS: G0277 ==

== ENCOUNTER 2022-11-13 02:43 | Day surgery (SDC) | payer OTHER | END 2022-11-13 23:00 | disposition home or self-care (01) | LOC: HBO 02:43 | DX: L59.8 Other specified disorders of the skin and subcutaneous tissue related to radiation (principal); Z85.819 Personal history of malignant neoplasm of unspecified site of lip, oral cavity, and pharynx; T81.31XS Disruption of external operation (surgical) wound, not elsewhere classified, sequela; I48.92 Unspecified atrial flutter; I25.10 Atherosclerotic heart disease of native coronary artery without angina pectoris; F10.11 Alcohol abuse, in remission; I11.0 Hypertensive heart disease with heart failure; I50.9 Heart failure, unspecified | CPT/HCPCS: G0277 ==

== ENCOUNTER 2022-11-14 02:45 | Day surgery (SDC) | payer OTHER | END 2022-11-14 22:57 | disposition home or self-care (01) | LOC: HBO 02:45 | DX: L59.8 Other specified disorders of the skin and subcutaneous tissue related to radiation (principal); Z85.819 Personal history of malignant neoplasm of unspecified site of lip, oral cavity, and pharynx; T81.31XS Disruption of external operation (surgical) wound, not elsewhere classified, sequela; I48.92 Unspecified atrial flutter; I25.10 Atherosclerotic heart disease of native coronary artery without angina pectoris; R73.01 Impaired fasting glucose; F10.11 Alcohol abuse, in remission; I50.9 Heart failure, unspecified; I11.0 Hypertensive heart disease with heart failure | CPT/HCPCS: G0277 ==

== ENCOUNTER 2022-11-19 01:06 | Day surgery (SDC) | payer OTHER | END 2022-11-19 22:43 | disposition home or self-care (01) | LOC: HBO 01:06 | DX: T81.31XD Disruption of external operation (surgical) wound, not elsewhere classified, subsequent encounter (principal); L59.8 Other specified disorders of the skin and subcutaneous tissue related to radiation; I48.92 Unspecified atrial flutter; I11.0 Hypertensive heart disease with heart failure; I50.9 Heart failure, unspecified; I25.10 Atherosclerotic heart disease of native coronary artery without angina pectoris; R73.01 Impaired fasting glucose; F10.11 Alcohol abuse, in remission; Z85.819 Personal history of malignant neoplasm of unspecified site of lip, oral cavity, and pharynx; X58.XXXD Exposure to other specified factors, subsequent encounter | CPT/HCPCS: G0277 ==

== ENCOUNTER 2022-11-20 02:11 | Day surgery (SDC) | payer OTHER | END 2022-11-20 22:51 | disposition home or self-care (01) | LOC: HBO 02:11 | DX: T81.31XA Disruption of external operation (surgical) wound, not elsewhere classified, initial encounter (principal); L59.8 Other specified disorders of the skin and subcutaneous tissue related to radiation; I48.92 Unspecified atrial flutter; I11.0 Hypertensive heart disease with heart failure; I50.9 Heart failure, unspecified; I25.10 Atherosclerotic heart disease of native coronary artery without angina pectoris; R73.01 Impaired fasting glucose; F10.11 Alcohol abuse, in remission; Y83.9 Surgical procedure, unspecified as the cause of abnormal reaction of the patient, or of later complication, without mention of misadventure at the time of the procedure; Z85.819 Personal history of malignant neoplasm of unspecified site of lip, oral cavity, and pharynx | CPT/HCPCS: G0277 ==

== ENCOUNTER 2022-11-21 01:19 | Day surgery (SDC) | payer OTHER | END 2022-11-21 23:06 | disposition home or self-care (01) | LOC: HBO 01:19 | DX: T81.31XD Disruption of external operation (surgical) wound, not elsewhere classified, subsequent encounter (principal); S11.90XD Unspecified open wound of unspecified part of neck, subsequent encounter; S01.80XD Unspecified open wound of other part of head, subsequent encounter; S21.101D Unspecified open wound of right front wall of thorax without penetration into thoracic cavity, subsequent encounter; L59.8 Other specified disorders of the skin and subcutaneous tissue related to radiation; I48.92 Unspecified atrial flutter; I11.0 Hypertensive heart disease with heart failure; I50.9 Heart failure, unspecified; I25.10 Atherosclerotic heart disease of native coronary artery without angina pectoris; R73.01 Impaired fasting glucose; F10.11 Alcohol abuse, in remission; Y83.9 Surgical procedure, unspecified as the cause of abnormal reaction of the patient, or of later complication, without mention of misadventure at the time of the procedure; Z85.819 Personal history of malignant neoplasm of unspecified site of lip, oral cavity, and pharynx; X58.XXXD Exposure to other specified factors, subsequent encounter | CPT/HCPCS: G0277 ==

== ENCOUNTER 2022-11-21 01:21 | Day surgery (SDC) | payer OTHER | END 2022-11-21 23:06 | disposition home or self-care (01) | LOC: WOUND 01:21 | DX: T81.32XA Disruption of internal operation (surgical) wound, not elsewhere classified, initial encounter (principal); L59.8 Other specified disorders of the skin and subcutaneous tissue related to radiation; Z85.819 Personal history of malignant neoplasm of unspecified site of lip, oral cavity, and pharynx; I48.92 Unspecified atrial flutter; I25.10 Atherosclerotic heart disease of native coronary artery without angina pectoris; I50.9 Heart failure, unspecified; I11.0 Hypertensive heart disease with heart failure | CPT/HCPCS: G0463 ==

== ENCOUNTER 2022-11-26 00:18 | Day surgery (SDC) | payer OTHER | END 2022-11-26 23:04 | disposition home or self-care (01) | LOC: HBO 00:18 | DX: S01.80XD Unspecified open wound of other part of head, subsequent encounter (principal); S21.101D Unspecified open wound of right front wall of thorax without penetration into thoracic cavity, subsequent encounter; S11.90XD Unspecified open wound of unspecified part of neck, subsequent encounter; T81.31XD Disruption of external operation (surgical) wound, not elsewhere classified, subsequent encounter; X58.XXXD Exposure to other specified factors, subsequent encounter; L59.8 Other specified disorders of the skin and subcutaneous tissue related to radiation; Z85.819 Personal history of malignant neoplasm of unspecified site of lip, oral cavity, and pharynx; I48.92 Unspecified atrial flutter; I10 Essential (primary) hypertension; I25.10 Atherosclerotic heart disease of native coronary artery without angina pectoris; R73.01 Impaired fasting glucose; F10.11 Alcohol abuse, in remission; I50.9 Heart failure, unspecified | CPT/HCPCS: G0277 ==

== ENCOUNTER 2022-11-28 02:40 | Day surgery (SDC) | payer OTHER | END 2022-11-28 23:34 | disposition home or self-care (01) | LOC: HBO 02:40 | DX: L59.8 Other specified disorders of the skin and subcutaneous tissue related to radiation (principal); S01.80XD Unspecified open wound of other part of head, subsequent encounter; S21.101D Unspecified open wound of right front wall of thorax without penetration into thoracic cavity, subsequent encounter; S11.90XD Unspecified open wound of unspecified part of neck, subsequent encounter; X58.XXXD Exposure to other specified factors, subsequent encounter; T81.31XS Disruption of external operation (surgical) wound, not elsewhere classified, sequela; I48.92 Unspecified atrial flutter; I25.10 Atherosclerotic heart disease of native coronary artery without angina pectoris; R73.01 Impaired fasting glucose; F10.11 Alcohol abuse, in remission; I11.0 Hypertensive heart disease with heart failure; I50.9 Heart failure, unspecified; Z85.819 Personal history of malignant neoplasm of unspecified site of lip, oral cavity, and pharynx | CPT/HCPCS: G0277 ==

== ENCOUNTER 2022-11-30 03:35 | Day surgery (SDC) | payer OTHER | END 2022-11-30 22:44 | disposition home or self-care (01) | LOC: HBO 03:35 | DX: T81.31XD Disruption of external operation (surgical) wound, not elsewhere classified, subsequent encounter (principal); L59.8 Other specified disorders of the skin and subcutaneous tissue related to radiation; S01.80XD Unspecified open wound of other part of head, subsequent encounter; S21.101D Unspecified open wound of right front wall of thorax without penetration into thoracic cavity, subsequent encounter; S11.90XD Unspecified open wound of unspecified part of neck, subsequent encounter; I48.92 Unspecified atrial flutter; I25.10 Atherosclerotic heart disease of native coronary artery without angina pectoris; R73.01 Impaired fasting glucose; F10.11 Alcohol abuse, in remission; I11.0 Hypertensive heart disease with heart failure; I50.9 Heart failure, unspecified; X58.XXXD Exposure to other specified factors, subsequent encounter; Z85.819 Personal history of malignant neoplasm of unspecified site of lip, oral cavity, and pharynx | CPT/HCPCS: G0277 ==

== ENCOUNTER 2022-12-03 08:00 | Day surgery (SDC) | payer OTHER | END 2022-12-03 23:59 | disposition home or self-care (01) | LOC: HBO 08:00 | DX: L59.8 Other specified disorders of the skin and subcutaneous tissue related to radiation (principal); Z85.819 Personal history of malignant neoplasm of unspecified site of lip, oral cavity, and pharynx; S01.80XD Unspecified open wound of other part of head, subsequent encounter; S21.101D Unspecified open wound of right front wall of thorax without penetration into thoracic cavity, subsequent encounter; S11.90XD Unspecified open wound of unspecified part of neck, subsequent encounter; T81.31XS Disruption of external operation (surgical) wound, not elsewhere classified, sequela; I48.92 Unspecified atrial flutter; I25.10 Atherosclerotic heart disease of native coronary artery without angina pectoris; R73.01 Impaired fasting glucose; F10.11 Alcohol abuse, in remission; I50.9 Heart failure, unspecified; I11.0 Hypertensive heart disease with heart failure | CPT/HCPCS: G0277 ==

== ENCOUNTER 2022-12-04 00:35 | Day surgery (SDC) | payer OTHER | END 2022-12-04 22:44 | disposition home or self-care (01) | LOC: HBO 00:35 | DX: L59.8 Other specified disorders of the skin and subcutaneous tissue related to radiation (principal); S01.80XD Unspecified open wound of other part of head, subsequent encounter; S21.101D Unspecified open wound of right front wall of thorax without penetration into thoracic cavity, subsequent encounter; S11.90XD Unspecified open wound of unspecified part of neck, subsequent encounter; X58.XXXD Exposure to other specified factors, subsequent encounter; T81.31XS Disruption of external operation (surgical) wound, not elsewhere classified, sequela; Y83.8 Other surgical procedures as the cause of abnormal reaction of the patient, or of later complication, without mention of misadventure at the time of the procedure; I48.92 Unspecified atrial flutter; I25.10 Atherosclerotic heart disease of native coronary artery without angina pectoris; R73.01 Impaired fasting glucose; F10.11 Alcohol abuse, in remission; I11.0 Hypertensive heart disease with heart failure; I50.9 Heart failure, unspecified; Z85.819 Personal history of malignant neoplasm of unspecified site of lip, oral cavity, and pharynx | CPT/HCPCS: G0277 ==

== ENCOUNTER 2022-12-10 02:11 | Day surgery (SDC) | payer OTHER | END 2022-12-10 22:54 | disposition home or self-care (01) | LOC: HBO 02:11 | DX: S01.80XD Unspecified open wound of other part of head, subsequent encounter (principal); L59.8 Other specified disorders of the skin and subcutaneous tissue related to radiation; Z85.819 Personal history of malignant neoplasm of unspecified site of lip, oral cavity, and pharynx; S21.101D Unspecified open wound of right front wall of thorax without penetration into thoracic cavity, subsequent encounter; S11.90XD Unspecified open wound of unspecified part of neck, subsequent encounter; T81.31XS Disruption of external operation (surgical) wound, not elsewhere classified, sequela; I48.92 Unspecified atrial flutter; I25.10 Atherosclerotic heart disease of native coronary artery without angina pectoris; F10.11 Alcohol abuse, in remission; I50.9 Heart failure, unspecified; I11.0 Hypertensive heart disease with heart failure | CPT/HCPCS: G0277 ==

== ENCOUNTER 2022-12-11 01:39 | Day surgery (SDC) | payer OTHER | END 2022-12-11 22:56 | disposition home or self-care (01) | LOC: HBO 01:39 | DX: L59.8 Other specified disorders of the skin and subcutaneous tissue related to radiation (principal); S01.80XD Unspecified open wound of other part of head, subsequent encounter; S21.101D Unspecified open wound of right front wall of thorax without penetration into thoracic cavity, subsequent encounter; S11.90XD Unspecified open wound of unspecified part of neck, subsequent encounter; X58.XXXD Exposure to other specified factors, subsequent encounter; T81.31XD Disruption of external operation (surgical) wound, not elsewhere classified, subsequent encounter; Y83.8 Other surgical procedures as the cause of abnormal reaction of the patient, or of later complication, without mention of misadventure at the time of the procedure; I48.92 Unspecified atrial flutter; I25.10 Atherosclerotic heart disease of native coronary artery without angina pectoris; R73.01 Impaired fasting glucose; F10.11 Alcohol abuse, in remission; I11.0 Hypertensive heart disease with heart failure; I50.9 Heart failure, unspecified | CPT/HCPCS: G0277 ==

== ENCOUNTER 2022-12-12 05:34 | Day surgery (SDC) | payer OTHER | END 2022-12-12 23:10 | disposition home or self-care (01) | LOC: HBO 05:34 | DX: L59.8 Other specified disorders of the skin and subcutaneous tissue related to radiation (principal); S01.80XD Unspecified open wound of other part of head, subsequent encounter; S21.101D Unspecified open wound of right front wall of thorax without penetration into thoracic cavity, subsequent encounter; S11.90XD Unspecified open wound of unspecified part of neck, subsequent encounter; X58.XXXD Exposure to other specified factors, subsequent encounter; T81.31XS Disruption of external operation (surgical) wound, not elsewhere classified, sequela; Y83.8 Other surgical procedures as the cause of abnormal reaction of the patient, or of later complication, without mention of misadventure at the time of the procedure; I48.92 Unspecified atrial flutter; I25.10 Atherosclerotic heart disease of native coronary artery without angina pectoris; R73.01 Impaired fasting glucose; F10.11 Alcohol abuse, in remission; I11.0 Hypertensive heart disease with heart failure; I50.9 Heart failure, unspecified; Z85.819 Personal history of malignant neoplasm of unspecified site of lip, oral cavity, and pharynx | CPT/HCPCS: G0277 ==

== ENCOUNTER 2024-10-08 11:51 | Day surgery (SDC) | payer OTHER ==
[~2024-10-08] VITALS: Ht 175.3 cm; Wt 70.5 kg
[~2024-10-08 11:51] MED LIST changes: +Lactated Ringer's 1,000 ML IV ONE
[2024-10-08] MEDS ORDERED: SYNTHROID50 MC1 (12:11)
[2024-10-08] MEDS ORDERED: propofoL 50 ML IV ONE (12:17)
[2024-10-08] MEDS ORDERED: Lactated Ringer's 1,000 ML IV ONE (12:51)
[2024-10-08 14:19] VITALS: BP 106/74
== END 2024-10-08 14:14 | disposition home or self-care (01) ==
LOC: ORSCSDS 11:51
PROVIDERS: Surgery
PROC: 0DBN8ZX Excision of Sigmoid Colon, Via Natural or Artificial Opening Endoscopic, Diagnostic (ICD-10-PCS; principal; 2024-10-08 13:30)
DX: Z12.11 Encounter for screening for malignant neoplasm of colon (principal); Z86.0100 Personal history of colon polyps, unspecified; D12.5 Benign neoplasm of sigmoid colon; K57.30 Diverticulosis of large intestine without perforation or abscess without bleeding; I12.9 Hypertensive chronic kidney disease with stage 1 through stage 4 chronic kidney disease, or unspecified chronic kidney disease; N18.9 Chronic kidney disease, unspecified; I48.91 Unspecified atrial fibrillation; Z79.01 Long term (current) use of anticoagulants; I25.10 Atherosclerotic heart disease of native coronary artery without angina pectoris; G47.33 Obstructive sleep apnea (adult) (pediatric); E03.9 Hypothyroidism, unspecified; Z79.899 Other long term (current) drug therapy; Z85.819 Personal history of malignant neoplasm of unspecified site of lip, oral cavity, and pharynx
CPT/HCPCS: 88305; C1889; J2704; J7120